=== PATIENT | male | born 1975 | race African-American/Black ===

== ENCOUNTER → 2020-06-11 12:59 | Outpatient (BNVA) | payer MEDICAID, SELFPAY | PROVIDERS: PCP Internal Medicine; Referring Provider Internal Medicine; Visit Provider Orthopaedic Surgery | DX: S97.02XD Crushing injury of left ankle, subsequent encounter (principal) | CPT/HCPCS: 99213 ==

== ENCOUNTER 2020-06-29 13:43 | Outpatient (REF) | payer MEDICAID, SELFPAY ==
--- NOTE | 2020-06-29 13:53 | CT_ITS ---
EXAMINATION: CT LEFT ANKLE WITHOUT CONTRAST CLINICAL INFORMATION: Crush injury of left ankle. COMPARISON: Left ankle 06/04/2020 TECHNIQUE: 2 mm thin axial and reformatted 1 mm thin sagittal and coronal images of left ankle were obtained. DLP: 168 mGy-cm. FINDINGS: There is diffuse qtzentwj-ft-duxviu osteopenia. No visible fracture or dislocation or subluxation seen. The ankle mortise and the subtalar joints are maintained normal. There is mild spurring along the dorsal-medial cuneiform and navicular bone. The intertarsal, tarsometatarsal joint alignment is normal. No abnormal joint effusion seen. Visualized medial and lateral ankle ligaments on this nonenhanced CT appear intact. There is small ossicular bone is seen medial and inferior to the navicular bone likely os naviculare. IMPRESSION: Diffuse cdrmgyal-jh-psmcgb osteopenia. No visible fracture, dislocation or loose body seen. The joint alignment is maintained. No abnormal soft tissue swelling seen. Minimal dorsal-medial cuneiform and navicular bone spurring.
== END 2020-06-29 13:44 | disposition home or self-care (01) ==
LOC: HO.CT 13:43
PROVIDERS: Visit Provider Orthopaedic Surgery
DX: S97.0 Crushing injury of ankle (principal)
CPT/HCPCS: 73700

== ENCOUNTER → 2020-07-09 09:02 | Outpatient (BNVA) | payer OTHER, MEDICAID, SELFPAY | PROVIDERS: PCP Internal Medicine; Referring Provider Internal Medicine; Visit Provider Orthopaedic Surgery | DX: S97.82XD Crushing injury of left foot, subsequent encounter (principal); S97.02XD Crushing injury of left ankle, subsequent encounter | CPT/HCPCS: 99212 ==

== ENCOUNTER → 2020-08-10 10:51 | Outpatient (BNVA) | payer OTHER, MEDICAID, SELFPAY | PROVIDERS: Visit Provider Orthopaedic Surgery | DX: S97.81XD Crushing injury of right foot, subsequent encounter (principal); S97.01XD Crushing injury of right ankle, subsequent encounter | CPT/HCPCS: 99212 ==

== ENCOUNTER 2020-08-21 10:00 | Outpatient (RCR) | payer OTHER, MEDICAID, SELFPAY ==
--- NOTE | 2020-07-17 15:11 | MHC.PT.EP ---
[facility] [place] Office [place] Office [place] Office [address] Ema Doyle 140 [facility] [phone] F: [phone] F: [phone] F: [phone] F: [phone] Physical Therapy Plan of Care Date of Evaluation: 07/17/20 Date of Surgery: no surgery Diagnosis: left foot work injury Assessment: Pt has left ankle pain after a work related injury. He has decreased ROM, strength in the left ankle. The patient has an altered gait pattern, and decrreased functional movement. He has poor balance, and is not putting equal weight in the left ankle. He is a good candidate to work on current impairments. Frequency and Duration: The patient will be seen 2x/week x 4 weeks. Short Term Goals: 1. Pt to be able to walk with a heel to toe gait pattern without pain. [facility]ci Goals: 1. Pt to be able to walk with a heel to toe gait pattern without pain. 2. The patient to be able to negotiate all community obstacles without trouble. Treatment Plan: Modalities to reduce pain, spasms and effusion. Manual therapy to restore motion and function. Therapeutic exercise to improve strength and flexibility. Neuromuscular re-education for posture and balance. Therapeutic activities to return to functional activities of daily living. Please sign and return to therapist. Thank you for your referral.
--- NOTE | 2020-09-22 10:54 | MHC.PT.DC ---
[facility] [place] Office [place] Office [place] Office [address] Ema Doyle [address] [phone] F: [phone] F: [phone] F: [phone] F: [phone] Physical Therapy Discharge Report Diagnosis: left foot work injury Date of Surgery: no surgery Date of Evaluation: 07/17/20 Date of Discharge: 09/22/20 Treatments to Date: 10 Cancellations to Date: 0 No Shows to Date: 0 Discharge Status: Recommend MD Follow-up Discharge Summary: The patient was making slow progress with activity tolerance. He still had considerable pain following an injury in May. Since PT was not helping we discussed f/u with his MD for further diagnostic imaging to rule out ligament pathology. Electronically signed by: Nedra Rizo PT DPT Please sign and return to therapist. Thank you for your referral.
== END 2020-09-22 10:56 | disposition other institution (70) ==
LOC: HO.PT 10:00
PROVIDERS: PCP Internal Medicine; Visit Provider Orthopaedic Surgery
DX: S97.02XD Crushing injury of left ankle, subsequent encounter (principal)
CPT/HCPCS: 97110; 97112; 97116; 97140; 97162; 97530

== ENCOUNTER 2020-09-15 18:47 | Outpatient (REF) | payer OTHER, MEDICAID, SELFPAY ==
--- NOTE | 2020-09-15 18:49 | MR_ITS ---
EXAMINATION: MRI ANKLE WITHOUT CONTRAST, LEFT CLINICAL INFORMATION: Left ankle pain and swelling. Crush injury. COMPARISON: Left ankle radiographs dated 06/04/[address] dated 06/29/2020. TECHNIQUE: Multisequence MR images of the left ankle were obtained without contrast on a high-field strength scanner. FINDINGS: BONE AND ARTICULAR CARTILAGE: Marrow edema within the medial talus as well as the medial malleolus adjacent to the deltoid ligament attachments. Findings are likely reactive to the associated deltoid ligament pathology. Minimal marrow edema within the lateral aspect of the anterior calcaneus, which could represent an osseous contusion. Intact articular cartilage. No talar osteochondral lesion. ACHILLES TENDON: Mild thickening of the distal Achilles tendon, which could represent minimal chronic tendinosis. No measurable tendon defect. OTHER TENDONS: Intact. LIGAMENTS: Thickening of the anterior and posterior talofibular ligaments as well as the calcaneofibular ligament, consistent with remote sprain/partial tears. Thickening and edema throughout the deltoid ligament, consistent with an acute sprain/partial tear. Adjacent reactive marrow edema within the medial malleolus and talus. JOINT FLUID AND SOFT TISSUES: Small tibiotalar joint effusion. PLANTAR FASCIA: Normal. SINUS TARSI AND TARSAL TUNNEL: Normal. MR/MR ankle LT wo con IMPRESSION: 1. Moderate sprain/partial tear of the deltoid ligament with reactive marrow edema in the medial malleolus and medial talus. 2. Mild marrow edema within the anterolateral aspect of the calcaneus, which could represent an osseous contusion. 3. Mild chronic Achilles tendinosis without a measurable tendon defect. 4. Remote sprain/partial tears of the anterior posterior talofibular ligaments as well as the calcaneofibular ligament. 5. Small tibiotalar joint effusion.
== END 2020-09-15 18:48 | disposition home or self-care (01) ==
LOC: HO.MRI 18:47
PROVIDERS: Visit Provider Orthopaedic Surgery
DX: S97.02XA Crushing injury of left ankle, initial encounter (principal); X58.XXXA Exposure to other specified factors, initial encounter; Y93.9 Activity, unspecified; Y92.9 Unspecified place or not applicable; Y99.0 Civilian activity done for income or pay
CPT/HCPCS: 73721

== ENCOUNTER → 2020-09-24 11:15 | Outpatient (BNVA) | payer OTHER, MEDICAID, SELFPAY | PROVIDERS: Visit Provider Orthopaedic Surgery | DX: S97.0 Crushing injury of ankle (principal); S97.80XA Crushing injury of unspecified foot, initial encounter | CPT/HCPCS: 99212 ==

== ENCOUNTER 2020-11-20 11:00 | Outpatient (RCR) | payer OTHER, MEDICAID, SELFPAY ==
[2020-10-06 15:07] VITALS: BP 143/90; PULSE 72
--- NOTE | 2020-10-06 16:19 | MHC.PT.EP ---
[facility] [place] Office [place] Office [place] Office [address] Haanne Doyle [address] [phone] F: [phone] F: [phone] F: [phone] F: [phone] Physical Therapy Plan of Care Date of Evaluation: 10/06/20 Date of Surgery: Diagnosis: crushing injury of R foot and ankle Assessment: Pt is a 45 y.o.m. with chief complaint of (L) ankle pain and swelling following workplace crush injury on 05/18/2020 in which he had a pallet noelle roll over foot. Recent MRI 08/15/21 shows moderate deltoid ligamentous tear, mild tears of PTFL and CFL with achilles tendinopathy. Pt presents today to PT with reduced (L) ankle/foot ROM, reduced strength, pain, lateral ligamentous laxity, and swelling. Pt additionally has visible atrophy of ankle musculature that likely contributes to (L) ankle weakness. Pt sxs are consistent with chronic ligamentous injury and resultant weakness and hypomobility. Pt will benefit from skilled PT 2x/week for 6 weeks to improve ROM, strength, and functional mobility to assist in return to work, ambulation, and ADLs. Frequency and Duration: The patient will be seen 2x/week for 6 weeks Short Term Goals: 3 Weeks: 1)Pt will be independent in HEP to maintain gains between sessions. 2)Pt DF will be neutral to aid in ambulation. [employer] Goals: 6 Weeks: 1) Pt LEFS will be >60/80 to represent significant improvement in function. 2) Pt will tolerate >45 minutes of standing activity to aid in return to work. 3) Pt will be able to ambulate >30 minutes to aid in return to work. Treatment Plan: Modalities to reduce pain, spasms and effusion. Manual therapy to restore motion and function. Therapeutic exercise to improve strength and flexibility. Neuromuscular re-education for posture and balance. Therapeutic activities to return to functional activities of daily living. Electronically signed by: Cailin Hagen PT Please sign and return to therapist. Thank you for your referral.
--- NOTE | 2020-11-11 12:12 | MHC.PT.PR ---
[facility] [place] Office [place] Office [place] Office [address] Ema Doyle [address] [phone] F: [phone] F: [phone] F: [phone] F: [phone] Physical Therapy Progress Note Diagnosis: crushing injury of L foot and ankle Date of Surgery: NA Date of Evaluation: 10/06/20 Treatments to Date: 10 Cancellations to Date: 0 No Shows to Date: 0 Subjective: Increased L ankle pain today and he is unsure why. It started yesterday and hurts anterior and medial L ankle. Pain Score and Location: 7 L ankle Objective Measures: L ankle PROM: df 8, pf 55, inv 24, eversion 6 L LE strength: 5/5 hip flexor/IR/HS, 4+/5 ER/quads/pf, 4/5 ankle df, 4-/5 ankle inv/eversion with pain. Still lacks significant toe mobility Assessment: Pt regressed today in terms of gait pattern, pain, and exercise tolerance. He is unsure what happened, but he had increased pain starting yesterday along medial arch and medial ankle. Overall he feels that PT has been helping and feels 60-70% better since starting other than todays regression. He is compliant with HEP and added self stretching to toes as he still has minimal toe activation. He demonstrates improved hip/knee strength and his ankle strength is the same with pain during inversion and eversion. His L ankle ROM has improved significantly (see above for measurements). He is now able to stand for 35 minutes and walk for 40 minutes before needing to sit down. His single limb balance is 14 seconds on L with pain and instability noted. He may benefit from continued PT 2x/week for an additional 3 weeks to progress balance and functional mobility such as step-downs as he still has significant compensatory movement with forward and lateral step downs. He has a f/u with Ortho 11/17 and another appointment 11/23 to decide whether he will have ankle surgery. PT Plan: Continue with PT Frequency and Duration: The patient will be seen 2x/week for an additional 3 weeks Treatment Plan: Therapeutic Exercise Dynamic Therapeutic Activities Neuromuscular Re-ed Manual Therapies Gait Home Exercise Program Patient Education Hot or Cold Pack Reviewed/ Agreed with Student Documentation: N/A Therapist: Melissa Freeman, PT, DPT Thank you once again for your referral.
--- NOTE | 2020-12-17 15:57 | MHC.PT.DC ---
[facility] [place] Office [place] Office [place] Office [address] Ema Doyle [address] [phone] F: [phone] F: [phone] F: [phone] F: [phone] Physical Therapy Discharge Report Diagnosis: crushing injury of L foot and ankle Date of Surgery: NA Date of Evaluation: 10/06/20 Date of Discharge: 12/17/20 Treatments to Date: 13 Cancellations to Date: 0 No Shows to Date: 0 Discharge Status: Independent with HEP Recommend MD Follow-up Discharge Summary: Pt did not f/u with final visit however at time of last attended visit 11/20/20 Pt arrived stating he is feeling better but still has pain. His pain is localized to joint line and dorsal aspect of toes. Pt was continued with balance and strengthening exercises. He was challenged with 8 inch step for forward step downs and lateral step down. Pt had joint line discomfort but was able to complete the exercises. Continue challenging balance and LE strength. No adverse response noted to any exercise. Electronically signed by: Cailin Hagen PT Please sign and return to therapist. Thank you for your referral.
== END 2020-12-17 15:58 | disposition home or self-care (01) ==
LOC: HO.PT 11:00
PROVIDERS: PCP Internal Medicine; Visit Provider Orthopaedic Surgery
DX: S97.0 Crushing injury of ankle (principal); S00-T88 Injury, poisoning and certain other consequences of external causes
CPT/HCPCS: 97110; 97112; 97162; 97530

== ENCOUNTER → 2020-11-30 10:49 | Outpatient (BNVA) | payer OTHER, MEDICAID, SELFPAY | PROVIDERS: Visit Provider Orthopaedic Surgery | DX: S97.82XA Crushing injury of left foot, initial encounter (principal); S97.02XA Crushing injury of left ankle, initial encounter | CPT/HCPCS: 99212 ==

== ENCOUNTER → 2021-02-22 13:15 | Outpatient (BNVA) | payer OTHER, MEDICAID, SELFPAY | PROVIDERS: PCP Internal Medicine Geriatric Medicine; Visit Provider Orthopaedic Surgery | DX: S97.0 Crushing injury of ankle (principal); S00-T88 Injury, poisoning and certain other consequences of external causes | CPT/HCPCS: 99212 ==

== ENCOUNTER → 2021-03-03 09:09 | Outpatient (REF) | payer MEDICAID, SELFPAY ==
--- NOTE | ~2021-03-03 | NM_ITS ---
Myocardial perfusion study Indication: Chest pain to evaluate for myocardial ischemia Technique: The patient was brought in for a Lexiscan perfusion study on 03/03/2021. Patient performed low-level exercise and was injected 0.4 mg of Lexiscan intravenously. Within a minute of injection, 25 mCi of sestamibi was given intravenously. Images were obtained using the SPECT gamma camera interlaced with the gating device. Images were obtained in supine position. Resting perfusion study was performed on 03/04/2021. Patient was administered 25 mCi of sestamibi intravenously at rest. Images were then obtained in supine position. Images obtained with and without CT attenuation. Total DLP 83 mGy-cm. Images were processed with the software and compared side to side in short axis, horizontal long axis and vertical long axis views. Findings: The stress perfusion study showed nonattenuated images show mildly reduced uptake in the basal septum of the LV myocardium. Remainder of the LV myocardium is normally perfused. Attenuation corrected images show mildly reduced uptake in the apex of the LV myocardium.. The gated study shows normal LV systolic function with visually estimated LVEF of greater than 55%. LV cavity is normal in size. The gated study shows normal systolic wall thickening and contraction of segments. Resting study shows nonattenuated images show mildly reduced uptake in the basal septum of the LV myocardium. Attenuation corrected images show moderately reduced uptake in the apex of the LV myocardium.. Gating at rest reveals normal systolic wall motion with visually estimated ejection fraction at greater than 55%. The findings are consistent with normal myocardial perfusion. NM/NM tresa perf SPECT rest & str Impression: 1. Myocardial perfusion imaging study shows normal myocardial perfusion 2. Gated LVEF is greater than 55% 3. Transient ischemic dilatation not present EKG is nondiagnostic for ischemia
--- NOTE | 2021-03-03 09:12 | CA_ITS ---
Acquisition Time: 2021-03-03 09:25:53 Total Exercise Time: 00:02:00 Test Indications: CP, SOB Medications: SEE CHART Protocol: LEXISCAN Max HR: 107 BPM 61% of Pred: 173 BPM Max BP: 120/080 mmHG Max Work Load: 1.6 METS Pharmacological stress test with Lexiscan injection, while walking on treadmill, without anginal symptoms, without arrythmia, with normotensive response to injection, with nondiagnostic EKG for ischemia. Nuclear images pending. Test reviewed with Dr Mendoza. Referred By: Drake Cohen Overread By: RASTA NUNEZ
== END ==
LOC: HO.CARD 09:09
PROVIDERS: PCP Internal Medicine; Visit Provider Internal Medicine Cardiovascular Disease
DX: R07.9 Chest pain, unspecified (principal)
CPT/HCPCS: 78452; 93017; A9500; J0280; J2785

== ENCOUNTER → 2021-03-24 14:58 | Outpatient (BNVA) | payer MEDICAID, SELFPAY | PROVIDERS: PCP Internal Medicine; Visit Provider Nurse Practitioner Family | DX: G90.50 Complex regional pain syndrome I, unspecified (principal); Z79.899 Other long term (current) drug therapy | CPT/HCPCS: 99202 ==

== ENCOUNTER → 2021-04-21 14:18 | Outpatient (BNVA) | payer MEDICAID, SELFPAY | PROVIDERS: PCP Internal Medicine; Visit Provider Nurse Practitioner Family ==

== ENCOUNTER → 2021-04-26 08:47 | Outpatient (BNVA) | payer MEDICAID, SELFPAY | PROVIDERS: PCP Internal Medicine Geriatric Medicine; Visit Provider Orthopaedic Surgery | DX: G90.50 Complex regional pain syndrome I, unspecified (principal); S97.02XA Crushing injury of left ankle, initial encounter; S97.82XA Crushing injury of left foot, initial encounter | CPT/HCPCS: 99212 ==

== ENCOUNTER → 2021-06-07 09:42 | Outpatient (BNVA) | payer MEDICAID, SELFPAY | PROVIDERS: PCP Internal Medicine Geriatric Medicine; Visit Provider Orthopaedic Surgery | DX: S97.02XD Crushing injury of left ankle, subsequent encounter (principal); S97.82XD Crushing injury of left foot, subsequent encounter; G90.50 Complex regional pain syndrome I, unspecified | CPT/HCPCS: 99212 ==

== ENCOUNTER → 2021-06-18 08:27 | Outpatient (BNVA) | payer MEDICAID, SELFPAY | PROVIDERS: PCP Internal Medicine Geriatric Medicine; Visit Provider Nurse Practitioner Family | DX: G90.50 Complex regional pain syndrome I, unspecified (principal) | CPT/HCPCS: 99212 ==

== ENCOUNTER → 2021-07-06 15:23 | Outpatient (BNVA) | payer MEDICAID, SELFPAY | PROVIDERS: Visit Provider Nurse Practitioner Family | DX: G90.50 Complex regional pain syndrome I, unspecified (principal) | CPT/HCPCS: 99212 ==

== ENCOUNTER → 2021-07-21 08:24 | Outpatient (BNVA) | payer MEDICAID, SELFPAY | PROVIDERS: Visit Provider Nurse Practitioner Family | DX: G90.50 Complex regional pain syndrome I, unspecified (principal) | CPT/HCPCS: 99212 ==

== ENCOUNTER → 2021-11-11 13:03 | Outpatient (BNVA) | payer OTHER, MEDICAID, SELFPAY | PROVIDERS: Visit Provider Orthopaedic Surgery | DX: S97.0 Crushing injury of ankle (principal); S00-T88 Injury, poisoning and certain other consequences of external causes | CPT/HCPCS: 99212 ==

== ENCOUNTER 2022-03-29 17:50 | Outpatient (REF) | payer OTHER, SELFPAY ==
--- NOTE | ~2022-03-29 | MR_ITS ---
EXAMINATION: MRI ANKLE WITHOUT CONTRAST, LEFT CLINICAL INFORMATION: Crush injury. COMPARISON: MRI ankle 09/15/2020 TECHNIQUE: MRI of the ankle without contrast is performed in a 1.5 Tammi high-field scanner. FINDINGS: There is a significant motion artifact degrading the images. This markedly limits evaluation. Technologist notes indicate patient kept falling asleep. Repeat MRI is recommended. BONE/JOINTS: Previous MRI demonstrated marrow edema within the medial talus and the medial malleolus. This area is obscured by artifact in the current study, not well evaluated. Limited evaluation of the calcaneus in the provided study. Question edema in the lateral/posterior aspect of the calcaneus, as seen on the sagittal sequences, suboptimally evaluated. There appears be cyst/edema in the first metatarsal head, which may be degenerative, incompletely evaluated. MUSCLES/TENDONS: Limited incomplete evaluation. LIGAMENTS: Limited incomplete evaluation ACHILLES TENDON: Limited evaluation. Grossly intact.. PLANTAR FASCIA: Limited incomplete evaluation.. SINUS TARSI: Normal signal. MR/MR foot LT wo con IMPRESSION: 1. There is marked motion artifact degrading the images. Evaluation is incomplete. Repeat MRI is recommended. 2. Limited incomplete evaluation of the osseous structures, tendons, ligaments.
== END 2022-03-29 17:51 | disposition home or self-care (01) ==
LOC: HO.MRI 17:50
PROVIDERS: Visit Provider Orthopaedic Surgery
DX: S97.02XD Crushing injury of left ankle, subsequent encounter (principal); S97.82XD Crushing injury of left foot, subsequent encounter
CPT/HCPCS: 73718

== ENCOUNTER → 2022-05-06 11:28 | Outpatient (BNVA) | payer OTHER, MEDICAID, SELFPAY | PROVIDERS: PCP Internal Medicine; Visit Provider Orthopaedic Surgery | DX: S97.02XA Crushing injury of left ankle, initial encounter (principal); S97.82XA Crushing injury of left foot, initial encounter; G90.50 Complex regional pain syndrome I, unspecified | CPT/HCPCS: 99212 ==

== ENCOUNTER 2022-05-12 10:11 | Outpatient (REF) | payer MEDICAID, SELFPAY ==
--- NOTE | ~2022-05-12 | XR_ITS ---
EXAMINATION: XR KNEE, RIGHT CLINICAL INFORMATION: Pain in right knee COMPARISON: None TECHNIQUE: Three views of the right knee. FINDINGS: Large suprapatellar joint effusion is present. Nor fracture or dislocation. Joint spaces are maintained. XR/XR knee RT 3V IMPRESSION: Large suprapatellar joint effusion is present.
--- NOTE | ~2022-05-12 | US_ITS ---
EXAMINATION: US VENOUS ULTRASOUND WITH DOPPLER LOWER EXTREMITY, RIGHT CLINICAL INFORMATION: Right leg pain and swelling COMPARISON: None TECHNIQUE: Ultrasound of the deep veins is performed from the hip to the calf with compression sonography and color and pulse Doppler assessment. Spectral analysis with color-flow imaging is performed. FINDINGS: There is normal venous compression and respiratory variation and augmented flow. The visualized common femoral vein, superficial femoral vein, profunda femoral vein, popliteal vein, and the trifurcation region shows no evidence of deep venous thrombosis. There is no significant popliteal fossa cyst. There is a complex fluid collection seen related to the anterior right knee and distal thigh. US/US venous duplex LE RT IMPRESSION: No DVT demonstrated in the right lower extremity. Complex fluid collection associated with the anterior right knee and distal thigh. If there is further clinical concern, MR examination may be helpful toward further clarification.
== END 2022-05-12 10:12 | disposition home or self-care (01) ==
LOC: HO.US 10:11
PROVIDERS: PCP Internal Medicine; Visit Provider Family Medicine
DX: M25.561 Pain in right knee (principal); M25.461 Effusion, right knee
CPT/HCPCS: 73562; 93971

== ENCOUNTER → 2022-05-19 15:55 | Outpatient (BNVA) | payer MEDICAID, SELFPAY | PROVIDERS: PCP Internal Medicine; Visit Provider Nurse Practitioner Family | DX: G90.50 Complex regional pain syndrome I, unspecified (principal); G43.009 Migraine without aura, not intractable, without status migrainosus; M47.816 Spondylosis without myelopathy or radiculopathy, lumbar region; M54.16 Radiculopathy, lumbar region; M25.561 Pain in right knee; S97.82XD Crushing injury of left foot, subsequent encounter; S97.02XD Crushing injury of left ankle, subsequent encounter | CPT/HCPCS: 99212 ==

== ENCOUNTER 2022-06-07 15:53 | Outpatient (REF) | payer OTHER, MEDICAID, SELFPAY ==
--- NOTE | ~2022-06-07 | MR_ITS ---
EXAMINATION: MR LUMBAR SPINE WITHOUT CONTRAST CLINICAL INFORMATION: Low back pain and lower extremity pain. COMPARISON: None. TECHNIQUE: Multiplanar, multisequence imaging was obtained. FINDINGS: VERTEBRAL BODIES AND PARASPINAL STRUCTURES: Mild anterosuperior endplate edema noted at the L2 and L3 levels. The remainder of the marrow signal is fairly homogeneous. There is mildly reduced intradiscal signal without a loss of disc height at the L4-L5 level. The paraspinal soft tissues are unremarkable. The imaged bony pelvis appears normal. CONUS MEDULLARIS AND CAUDA EQUINE: The distal cord, conus tip, and cauda equina nerve roots are normal. SPINAL LEVELS: L1-L2 and L2-L3: Well-hydrated normal appearance of the discs without central canal stenosis or foraminal narrowing. L3-L4: Very mild right posterolateral disc bulge with mild right foraminal encroachment abutting the exiting right L3 nerve root with mild facet arthropathy. No central canal stenosis. L4-L5: Mild disc degeneration and disc bulge with xein-ey-zlqsunva facet arthropathy. No central canal stenosis. Right foraminal disc protrusion with an underlying annular tear resulting in jyitmoss-ce-lclako foraminal encroachment and mass effect upon the exiting right L4 nerve root. Moderate left foraminal narrowing. L5-S1: No disc pathology. No central canal stenosis or foraminal narrowing. MR/MR lumbar spine wo con IMPRESSION: Mild right posterolateral disc bulge at the L3-L4 level contacting the exiting right L3 nerve root with mild right foraminal encroachment. Mild disc degeneration at the L4-L5 level with a right foraminal disc protrusion and underlying annular tear resulting in significant foraminal encroachment and mass effect upon the right L4 nerve root. Additional moderate left foraminal narrowing.
== END 2022-06-07 15:54 | disposition home or self-care (01) ==
LOC: HO.MRI 15:53
PROVIDERS: Visit Provider Nurse Practitioner Family
DX: M47.816 Spondylosis without myelopathy or radiculopathy, lumbar region (principal); G90.50 Complex regional pain syndrome I, unspecified; M54.16 Radiculopathy, lumbar region
CPT/HCPCS: 72148

== ENCOUNTER 2022-06-08 12:30 | Outpatient (REF) | payer MEDICAID, SELFPAY ==
--- NOTE | ~2022-06-08 | XR_ITS ---
EXAMINATION: XR BOTH KNEES AP STANDING XR RIGHT KNEE, 2 VIEWS CLINICAL INFORMATION: Right knee pain. COMPARISON: Right knee radiographs dated 05/12/2022. TECHNIQUE: Standing AP view of both knees and lateral and sunrise views of the right knee. FINDINGS: RIGHT KNEE: No acute fracture or dislocation. No significant joint space narrowing or marginal osteophytes. No osseous erosion. Utibv-he-oxvjxuhl joint effusion, decreased when compared to the prior examination. No abnormal soft tissue calcification. LEFT KNEE: No acute fracture or dislocation. No joint space narrowing or marginal osteophytes. No osseous erosion. No abnormal soft tissue calcification. XR/XR knee RT 2V IMPRESSION: Swufi-dy-fjjoajkm right knee joint effusion, decreased when compared to the prior examination. No acute osseous abnormality.
--- NOTE | ~2022-06-08 | XR_ITS ---
EXAMINATION: XR BOTH KNEES AP STANDING XR RIGHT KNEE, 2 VIEWS CLINICAL INFORMATION: Right knee pain. COMPARISON: Right knee radiographs dated 05/12/2022. TECHNIQUE: Standing AP view of both knees and lateral and sunrise views of the right knee. FINDINGS: RIGHT KNEE: No acute fracture or dislocation. No significant joint space narrowing or marginal osteophytes. No osseous erosion. Vayln-yo-norevkea joint effusion, decreased when compared to the prior examination. No abnormal soft tissue calcification. LEFT KNEE: No acute fracture or dislocation. No joint space narrowing or marginal osteophytes. No osseous erosion. No abnormal soft tissue calcification. XR/XR knee standing BI IMPRESSION: Mocps-qt-ctorsusf right knee joint effusion, decreased when compared to the prior examination. No acute osseous abnormality.
== END 2022-06-08 12:31 | disposition home or self-care (01) ==
LOC: HO.HOSX 12:30
PROVIDERS: Visit Provider Physician Assistant
DX: M25.561 Pain in right knee (principal); M25.562 Pain in left knee; S86.111D Strain of other muscle(s) and tendon(s) of posterior muscle group at lower leg level, right leg, subsequent encounter
CPT/HCPCS: 73560; 73565; 99212

== ENCOUNTER → 2022-06-16 11:40 | Day surgery (SDC) | payer OTHER, MEDICAID, SELFPAY ==
[2022-06-13 12:29] VITALS: BMI 26.3
--- NOTE | 2022-06-14 10:49 | P.CONAN_ITS ---
Documented by User: Maria T Camacho NP 06/14/22 10:51 HPI - Anesthesia Eval Consult details Narrative: 46yo M for Lumbar Spinal Cord Stimulation Trial 05/12/22 seen by PCP for calf pain. Ultrasound same day negative for DVT per orthopedic note. Follows cardiology for htn. Had chest pain 2020, but noncardiac, likely musculoskeletal per 12/2021 office visit and negative nuc stress PMFSH Active Problems Active Problems: All Active Problems (Updated 06/08/22 @ 13:32 by Ryan Lanza) Strain of right gastrocnemius muscle (Acute) Edema (Acute) Right calf pain (Acute) Right knee pain (Acute) Migraine without aura, not intractable (Acute) Lumbar radiculitis (Acute) Lumbar spondylosis (Acute) CRPS (complex regional pain syndrome type I) (Acute) Crushing injury of ankle and foot (Acute) Past Medical History Medical History (Updated 06/08/22 @ 13:32 by Ryan Lanza) High blood pressure Migraines Family History Family History Father No problems noted. Mother No problems noted. Social History Social History Household Members: Spouse Alcohol intake: never Patient Tobacco Use Status: Current everyday Tobacco user Tobacco use type: Cigarette Cigarettes Per Day: 4 Use of substances other than those prescribed or required for medical reasons: No Are you DNR?: No Advance Directives: No Advance Directives Information Provided: Yes Current occupational status: unemployed Current occupation: right handed Meds Allergies Allergy/AdvReac Type Severity Reaction Status Date / Time No Known Allergies Allergy Verified 05/19/22 16:06 Home Medications Medication Instructions Recorded Confirmed Last Taken Type blood pressure test kit-large #1 ea 02/22/21 06/08/22 Unknown History methocarbamol 750 mg tablet 750 mg PO QID PRN muscle spasm 02/22/21 06/08/22 Unknown History amlodipine 5 mg tablet 5 mg PO DAILY 06/18/21 06/08/22 Unknown History ergocalciferol (vitamin D2) 50 mcg 50 mcg PO DAILY 06/18/21 06/08/22 Unknown History (2,000 unit) capsule losartan 50 mg-hydrochlorothiazide 1 tab PO DAILY 06/18/21 06/08/22 Unknown History 12.5 mg tablet amitriptyline 25 mg tablet 25 mg PO BEDTIME 06/08/22 06/08/22 Unknown History bupropion HCl 150 mg 24 hr tablet, 150 mg PO DAILY 06/08/22 06/08/22 Unknown History extended release hydroxyzine pamoate 25 mg capsule 25 mg PO TID PRN panic attack 06/08/22 06/08/22 06/16/22 History naproxen 500 mg tablet 500 mg PO BID 06/08/22 06/08/22 Unknown History Exam Exam Date and Time: June 14, 2022 104 Height,Weight and Vital Signs: Height 5 ft 8 in Weight 78.471 kg Narrative Narrative: NM tresa perf SPECT rest & str 02/2021 Impression: ? 1.? Myocardial perfusion imaging study shows normal myocardial perfusion 2.? Gated LVEF is greater than 55% 3. Transient ischemic dilatation not present ? EKG is nondiagnostic for ischemia Assessment and Plan Assessment Anesthesia Assessment: Chart Reviewed Documented by User: Xavi Esposito MD 06/16/22 16:32 HPI - Anesthesia Eval Consult details Narrative: 46yo M for Lumbar Spinal Cord Stimulation Trial Smoker 05/12/22 seen by PCP for calf pain. Ultrasound same day negative for DVT per or thopedic note. Follows cardiology for htn. Had chest pain 2020, but noncardiac, likely musculoskeletal per 12/2021 office visit and negative nuc stress PMFSH Past Medical History Medical History (Updated 06/08/22 @ 13:32 by Ryan Lanza) High blood pressure Migraines Family History Family History Father No problems noted. Mother No problems noted. Family history of problems with anesthesia: No Surgical History History of Problems with Anesthesia: No Social History Social History Household Members: Spouse Alcohol intake: never Patient Tobacco Use Status: Current everyday Tobacco user Tobacco use type: Cigarette Cigarettes Per Day: 4 Use of substances other than those prescribed or required for medical reasons: No Are you DNR?: No Advance Directives: No Advance Directives Information Provided: Yes Current occupational status: unemployed Current occupation: right handed Meds Allergies Allergy/AdvReac Type Severity Reaction Status Date / Time No Known Allergies Allergy Verified 05/19/22 16:06 Home Medications Medication Instructions Recorded Confirmed Last Taken Type blood pressure test kit-large #1 ea 02/22/21 06/08/22 Unknown History methocarbamol 750 mg tablet 750 mg PO QID PRN muscle spasm 02/22/21 06/08/22 Unknown History amlodipine 5 mg tablet 5 mg PO DAILY 06/18/21 06/08/22 Unknown History ergocalciferol (vitamin D2) 50 mcg 50 mcg PO DAILY 06/18/21 06/08/22 Unknown History (2,000 unit) capsule losartan 50 mg-hydrochlorothiazide 1 tab PO DAILY 06/18/21 06/08/22 Unknown History 12.5 mg tablet amitriptyline 25 mg tablet 25 mg PO BEDTIME 06/08/22 06/08/22 Unknown History bupropion HCl 150 mg 24 hr tablet, 150 mg PO DAILY 06/08/22 06/08/22 Unknown History extended release hydroxyzine pamoate 25 mg capsule 25 mg PO TID PRN panic attack 06/08/22 06/08/22 06/16/22 History naproxen 500 mg tablet 500 mg PO BID 06/08/22 06/08/22 Unknown History Exam Airway Mallampati Class: III TM Dist: >3cm Neck ROM: Full Denture: Upper Loose/Missing/Broken Teeth: Yes Heart: S1,S2 Lungs: b/l breath sounds Assessment and Plan Assessment Anesthesia Assessment: Anesthesia Plan Discussed Final Anesthetic Review Family History of Problems with Anesthesia: No History of Problems with Anesthesia: No NPO: Yes ASA Class: III Final Preanesthetic Review: Meds/Allgs Chart Reviewed, Consent Obtained/Reviewed and Anes Risks/Benef Reviewed Patient Risk: Intermediate Procedure Risk: Intermediate Anesthetic Plan Anesthetic Plan: MAC: Disposition: Standard PACU
--- NOTE | 2022-06-16 11:47 | P.HPSUR_ITS ---
Pre-Procedural Eval Section A Date of Service: 06/16/22 The patient is an INPATIENT: No Changes since office visit: Yes Patient answered all questions The History & Physical has been completed within 30 days and I have reviewed it.: No Section B Chief Complaint: Complex regional pain syndrome I, unspecified Details of Present Illness: as above Relevant Family History (Specify if Yes): No Relevant Social History: None Present Medications: None Medical History: No relevant PMH History of Previous Operations: No relevant previous surgery Allergies: Allergies Allergy/AdvReac Type Severity Reaction Status Date / Time No Known Allergies Allergy Verified 05/19/22 16:06 Review of Systems Sugical H&P ROS: Negative: Constitution, Cardiovascular, Respiratory, Neur ological, Psychiatric, Hem-Onc, Allergic/Immunologic, Gastrointestinal, Genitourinary, Musculoskeletal, Integumentary, Endocrine and Eyes/Ears/Nose/Throat Exam Surgical H&P Exam: Normal: HEENT, Normal: Heart, Normal: Lungs, Normal: Extremities, Normal: Abdomen, Normal: Skin and Normal: Neurological Plan Diagnosis/Plan: Unchanged I have reviewed the history and physical and performed a pertinent physical examination on my patient. No changes have occurred unless specified.
[2022-06-16 11:57] VITALS: BMI 22.0
[2022-06-16 12:18] VITALS: BP 124/76; PULSE 74; RESP 16; TEMP 36.6; O2SAT 97
[2022-06-16] MEDS: Lactated Ringers 1,000 ML 100 ML IVCONT (12:33)
--- NOTE | 2022-06-16 13:36 | W.PM.OPN ---
Operative Note Operative Note Date of Service: 06/16/22 Narrative: Sincere is very pleasant [place] speaking 46 y.o gentleman who came today into the operating room for trial of spinal cord stimulator [employer] for the treatment of CRPS of the ... lower extremity, S/p crushing injury of his ... foot as well as lower back pain secondary to lumbar spondylosis and disc degeneration. ?Preoperatively patient received ? cefazolin 2 g approximately 10 minutes before the procedure. After obtaining informed consent the patient was brought to the operating room, HE was positioned prone on operating table, [employer] monitors were applied and the patient was moderately sedated.? ?Time-out was performed delineating correct site, side, the nature of the procedure, patient's allergy, preoperative antibiotic if needed.? All operating room staff was participating in OR time-out procedure. Patient's entire back was prepped with Chloraprep twice and draped with full body fenestrated laparoscopy drape.? Sterilely draped C-arm was brought over operating field and square picture of the ? T12-L1 L2 and L3 vertebrae? were demonstrated on the screen.? ?Attention FIRST? was concentrated on the L1-L2 epidural interspace.? The location of the projection of the right pedicle center of the L3 vertebra was found on the skin using C-arm.? This location was injected with mixture of lidocaine 2% and Marcaine 0.5% - 5 cc.? After that 11 blade was used to make a maldonado on the skin.? 10 cm 14 gauge? introducer epidural needle was inserted through the maldonado and advanced to? L1-L2 epidural interspace.? The advancement of the needle was performed on anterior posterior and lateral views.?Loss of resistance to air? technique were used to locate epidural space., epidural lead was inserted through the needle and it was advanced to?? top of T8 vertebra projection slightly right to the midline.? ? .? After that? the location of the projection of the LEFT pedicle center of the? L3 vertebra was found on the skin using C-arm.? This location was injected with mixture of lidocaine 2% and Marcaine 0.5% 5 cc.? After that 11 blade was used to make a maldonado on the skin.? 10 cm 14 gauge introducer epidural needle was inserted through the maldonado and advanced to L1- L2 epidural interspace.? The advancement of the needle was performed on anterior posterior and lateral views.? Guitar wire and loss of resistance to air technique were used to locate epidural space.? When guitar wire was spread in the epidural fashion, epidural lead was inserted through the needle and advanced to the middle of? T8 epidural interspace slightly? left to the existing electrode. Impedance was checked and was satisfactory . at this moment patient was awaken of the epidural leads were connected to the testing wires and trial stimulation was performed.? Patient was reporting stumulation corresponding to his low back and right lower extremity pain. Impedance was checked? and it was found to be satisfactory.? Posterior lead placement was verified by lateral x-ray ? The stimulation was found to be? corresponding to the patient's pain. The needles were withdrawn, the stylette wires were removed from the epidural leads.? The anchoring devices were dislodged on the leads and advanced to the level of the skin.? The anchoring devices were sutured with two 0-0 ?Silk sutures per each anchor to the skin of the patient. The central fixation screw of each anchor was rotated until three clicks were heard. The leads were connected to testing device.? Bacitracin ointment was applied to the entrance point of bilateral wires.? Sterile dressing was applied to the patient's back.? The testing device was also taped to the patient's back.? the patient tolerated procedure well he was awaken and taken outside of the operating room to recovery room. he recovered uneventful
[2022-06-16 14:20] LABS: MRSA Nasal PCR NEGATIVE (Negative); SA Nasal PCR POSITIVE (Negative)
[2022-06-16 14:23] VITALS: BP 107/72; PULSE 56; RESP 16; TEMP 37; O2SAT 98
[2022-06-16 14:38] VITALS: BP 106/73; PULSE 55; RESP 18; O2SAT 99
[2022-06-16 14:53] VITALS: BP 104/65; PULSE 64; RESP 20; TEMP 36.4; O2SAT 98
[2022-06-16 15:08] VITALS: BP 119/65; PULSE 64; RESP 20; TEMP 36.4; O2SAT 96
--- NOTE | 2022-06-16 18:56 | PM.EVENT ---
Event Note Date of Service: 06/16/22 Event Note: 46 years old male scheduled for Spinal Cord stimulator trial with MAC . Intraoperatively , patient with excessive airway secretions and continues irritative coughing , unable to tolerate sedation without invasive airway suctioning and management. Discussed with the surgeon and offered general anesthesia . The surgeon requires patient to be awake and communicative during the device testing portion of the procedure . We stopped the sedation and asked the patient if he would tolerate the procedure without any sedation . The patient declined , so the procedure was aborted . Oxygenation , ventilation and all other vital signs remained within normal limits during the encounter .
== END ==
PROVIDERS: Nurse Practitioner Family; PCP Internal Medicine; Visit Provider Anesthesiology
PROC: (CPT 63650; principal; 2022-06-16 13:10)
DX: S97.82XA Crushing injury of left foot, initial encounter (principal); G90.50 Complex regional pain syndrome I, unspecified; M79.672 Pain in left foot; R26.89 Other abnormalities of gait and mobility; X58.XXXA Exposure to other specified factors, initial encounter; Y93.89 Activity, other specified; Y92.9 Unspecified place or not applicable; Y99.0 Civilian activity done for income or pay; Z87.828 Personal history of other (healed) physical injury and trauma; G43.909 Migraine, unspecified, not intractable, without status migrainosus; Z79.1 Long term (current) use of non-steroidal anti-inflammatories (NSAID); F17.210 Nicotine dependence, cigarettes, uncomplicated
CPT/HCPCS: 63650; 87640; 87641; 99499; J0690; J2795

== ENCOUNTER → 2022-06-22 09:22 | Outpatient (BNVA) | payer MEDICAID, SELFPAY | PROVIDERS: PCP Internal Medicine; Visit Provider Anesthesiology | DX: G90.50 Complex regional pain syndrome I, unspecified (principal); G43.009 Migraine without aura, not intractable, without status migrainosus; M54.16 Radiculopathy, lumbar region; M47.816 Spondylosis without myelopathy or radiculopathy, lumbar region; M25.561 Pain in right knee; G89.4 Chronic pain syndrome; S97.82XD Crushing injury of left foot, subsequent encounter; S97.02XD Crushing injury of left ankle, subsequent encounter | CPT/HCPCS: 99212 ==

== ENCOUNTER 2022-07-07 10:00 | Day surgery (SDC) | payer MEDICAID, SELFPAY ==
--- NOTE | ~2022-07-07 | FL_ITS ---
EXAMINATION: XR FLUOROSCOPY WITH IMAGES CLINICAL INFORMATION: Spinal cord stimulation trial. COMPARISON: MR lumbar spine 06/07/2022 TECHNIQUE: Fluoroscopy performed by Dr. Tee Kirkland. Fluoroscopy time: 7.4 minutes. Cumulative Dose: 139 mGy. DAP: 35.4 Gycm2. Images: 3. FINDINGS: There are 2 spinal stimulator electrodes seen ascending the posterior spinal canal. The electrode tips are at level of mid thoracic spine. There is no visible kinking or defect of the leads. There are 2 thoracic vertebrae with loss of height of indeterminate age. FL/FL guidance in OR IMPRESSION: -Fluoroscopy for pain management procedure. -There are two mid thoracic vertebrae with loss of height, indeterminate age.
--- NOTE | 2022-07-07 09:26 | P.HPSUR_ITS ---
Pre-Procedural Eval Section A Date of Service: 07/07/22 The patient is an INPATIENT: No Changes since office visit: Yes Patient answered all questions The History & Physical has been completed within 30 days and I have reviewed it.: No Section B Chief Complaint: Complex regional pain syndrome I, unspecified Details of Present Illness: As above Relevant Family History (Specify if Yes): No Relevant Social History: None Present Medications: see Short Stay Collaborative assessment Medical History: No relevant PMH History of Previous Operations: Relevant previous surgery/procedure and date(s) Allergies: Allergies Allergy/AdvReac Type Severity Reaction Status Date / Time No Known Allergies Allergy Verified 06/22/22 09:56 Review of Systems Sugical H&P ROS: Negative: Constitution, Cardiovascular, Respiratory, Neurological, Psychiatric, Hem-Onc, Allergic/Immunologic, Gastrointestinal, Genitourinary, Musculoskeletal, Integumentary, Endocrine and Eyes/Ears/Nos e/Throat Exam Surgical H&P Exam: Normal: HEENT, Normal: Heart, Normal: Lungs, Normal: Abdomen, Normal: Skin and Normal: Neurological and Significant Findings: Extremities (Complex regional pain syndrome) Plan Diagnosis/Plan: Unchanged I have reviewed the history and physical and performed a pertinent physical examination on my patient. No changes have occurred unless specified.
[2022-07-07 10:17] VITALS: BP 122/70; PULSE 70; RESP 16; TEMP 36.3; O2SAT 96; BMI 22.0
[2022-07-07] MEDS: LORazepam 0.5 MG TABLET 1 MG PO (11:36)
[2022-07-07 13:18] VITALS: BP 121/76; PULSE 64; RESP 18; TEMP 37; O2SAT 98
--- NOTE | 2022-07-07 13:18 | PM.OP ---
Brief Operative Note Date of Service: 07/07/22 Pre-op diagnosis: Complex regional pain syndrome of the right lower extremity Post-op diagnosis: same Procedure: trial of [employer] spinal cord stimulator Implants: none permanent Surgeon: Tee Kirkland MD Anesthesia: local Was an Associate Account Manager used for this Procedure?: No Estimated blood loss (mL): 0 Condition: stable Disposition: PACU
--- NOTE | 2022-07-07 13:22 | W.PM.OPN ---
Operative Note Operative Note Date of Service: 07/07/22 Narrative: Sincere is very pleasant Malawian speaking 46 y.o gentleman who came today into the operating room for trial of spinal cord stimulator [employer] for the treatment of d Complex regional pain syndrome of the left lower extremity, as well as lower back pain radiating to the right lower leg. ?Preoperatively patient received ? cefazolin 2 g approximately 10 minutes before the procedure. After obtaining informed consent the patient was brought to the operating room, HE was positioned prone on operating table, The patient remained fully awake. ?Time-out was performed delineating correct site, side, the nature of the procedure, patient's allergy, preoperative antibiotic if needed.? All operating room staff was participating in OR time-out procedure. Patient's entire back was prepped with Chloraprep twice and draped with full body fenestrated laparoscopy drape.? Sterilely draped C-arm was brought over operating field and square picture of the ? T12-L1 L2 and L3 vertebrae? were demonstrated on the screen.? ?Attention FIRST? was concentrated on the L1-L2 epidural interspace.? The location of the projection of the right pedicle center of the L3 vertebra was found on the skin using C-arm.? This location was injected with mixture of lidocaine 2% and Marcaine 0.5% - 5 cc.? After that 11 blade was used to make a maldonado on the skin.? 10 cm 14 gauge? introducer epidural needle was inserted through the maldonado and advanced to? L1-L2 epidural interspace.? The advancement of the needle was performed on anterior posterior and lateral views.?Loss of resistance to air? technique were used to locate epidural space., epidural lead was inserted through the needle and attempt was made to advanced epidural lead in the posterior epidural space. Significant epidural adhesions were encountered in the patient's epidural space. The attempts to keep the epidural lead in posterior epidural space was met with resistance. several times the straight stylet was changed for court style attend advancement of the attempts were me without any significant success. After that epidural needle was removed and 5 in epidural needle was obtained on the field. It was advanced now to T12-L1 epidural interspace using loss of resistance technique to air and direct x-ray view for control. After needle entered the epidural space and loss of resistance to air was felt guitar wire was inserted into the epidural space and spread in the epidural fashion. After that epidural lead was inserted through the needle and advanced to were the posterior epidural space. Between T11 and T12 significant resistance from epidural adhesion was met again and epidural leads started to fold on itself. The epidural needle was removed and the blue sheath introducer was inserted alongside the body of the epidural lead into the epidural space. That allowed me to keep epidural lead stiff and advance the lead in the posterior epidural space toward top of T8 posterior epidural space. ? .? After that? the location of the projection of the LEFT pedicle center of the L2 vertebra was found on the skin using C-arm.? This location was injected with mixture of lidocaine 2% and Marcaine 0.5% 5 cc.? After that 11 blade was used to make a maldonado on the skin.? 10 cm 14 gauge introducer epidural needle was inserted through the maldonado and advanced to [id number] interspace.? The advancement of the needle was performed on anterior posterior and lateral views.? Guitar wire and loss of resistance to air technique were used to locate epidural space.? When guitar wire was spread in the epidural fashion, epidural lead was inserted through the needle and advanced to the middle of? T8 epidural interspace slightly? left to the existing electrode. Impedance was checked and was satisfactory . at this moment the epidural leads were connected to the testing wires and trial stimulation was performed.? Patient was reporting stumulation corresponding to his low back and right lower extremity pain as well as left lower extremity.. Impedance was checked? and it was found to be satisfactory.? Posterior lead placement was verified by lateral x-ray ? The stimulation was found to be? corresponding to the patient's pain. The needles were withdrawn, the stylette wires were removed from the epidural leads.? The anchoring devices were dislodged on the leads and advanced to the level of the skin.? The anchoring devices were sutured with two 0-0 ?Silk sutures per each anchor to the skin of the patient. The central fixation screw of each anchor was rotated until three clicks were heard. The leads were connected to testing device.? Bacitracin ointment was applied to the entrance point of bilateral wires.? Sterile dressing was applied to the patient's back.? The testing device was also taped to the patient's back.? the patient tolerated procedure well he was awaken and taken outside of the operating room to recovery room. he recovered uneventfully.
== END 2022-07-07 14:12 | disposition home or self-care (01) ==
PROVIDERS: PCP Internal Medicine; Visit Provider Anesthesiology
PROC: (CPT 63650; principal; 2022-07-07 11:30)
DX: G90.521 Complex regional pain syndrome I of right lower limb (principal); G89.4 Chronic pain syndrome; M79.672 Pain in left foot; R26.89 Other abnormalities of gait and mobility; M47.816 Spondylosis without myelopathy or radiculopathy, lumbar region; M25.561 Pain in right knee; M54.16 Radiculopathy, lumbar region; R25.2 Cramp and spasm; S97.0 Crushing injury of ankle; S97.80XA Crushing injury of unspecified foot, initial encounter; Z87.828 Personal history of other (healed) physical injury and trauma; X58.XXXA Exposure to other specified factors, initial encounter; Y93.9 Activity, unspecified; Y92.9 Unspecified place or not applicable; Y99.0 Civilian activity done for income or pay; G43.009 Migraine without aura, not intractable, without status migrainosus; I10 Essential (primary) hypertension; Z79.1 Long term (current) use of non-steroidal anti-inflammatories (NSAID); Z79.899 Other long term (current) drug therapy; F17.210 Nicotine dependence, cigarettes, uncomplicated
CPT/HCPCS: 63650 ×2; C1713; C1778; J0690; J2795

== ENCOUNTER → 2022-07-13 11:06 | Outpatient (BNVA) | payer MEDICAID, SELFPAY | PROVIDERS: PCP Internal Medicine; Visit Provider Anesthesiology | DX: G90.523 Complex regional pain syndrome I of lower limb, bilateral (principal); G43.009 Migraine without aura, not intractable, without status migrainosus; M54.16 Radiculopathy, lumbar region; M47.816 Spondylosis without myelopathy or radiculopathy, lumbar region; M25.561 Pain in right knee; M79.672 Pain in left foot; G89.4 Chronic pain syndrome | CPT/HCPCS: 99212 ==

== ENCOUNTER 2023-02-03 09:42 | Day surgery (SDC) | payer OTHER, SELFPAY ==
--- NOTE | 2023-02-02 11:02 | HO.ANESPROP2 ---
Documented by User: Maria T Camacho NP 02/02/23 11:02 HPI - Anesthesia Eval Consult details Narrative: 47yo M for Spinal Cord Stimulation Implant s/p trial 06/2022 with TIVA PMFSH Active Problems Active Problems: All Active Problems (Updated 06/22/22 @ 10:17 by Tee Kirkland MD) Chronic pain syndrome (Acute) Strain of right gastrocnemius muscle (Acute) Edema (Acute) Right calf pain (Acute) Right knee pain (Acute) Migraine without aura, not intractable (Acute) Lumbar radiculitis (Acute) Lumbar spondylosis (Acute) CRPS (complex regional pain syndrome type I) (Acute) Crushing injury of ankle and foot (Acute) Past Medical History Medical History CRPS (complex regional pain syndrome type I) High blood pressure Lumbar spondylolysis Migraines Myocardial infarction Family History Family History Father No problems noted. Mother No problems noted. Family history of problems with anesthesia: No Surgical History Surgical History Previous back surgery History of Problems with Anesthesia: No Social History Social History (Updated 02/03/23 @ 12:07 by Wen Gonsalves MD) Household Members: Spouse Alcohol intake: never Patient Tobacco Use Status: Current everyday Tobacco user Tobacco use type: Cigarette Cigarettes Per Day: 5 Second Hand Smoke Exposure: No Current occupational status: unemployed Current occupation: right handed Meds Allergies Allergy/AdvReac Type Severity Reaction Status Date / Time No Known Allergies Allergy Verified 02/03/23 10:22 Home Medications Medication Instructions Recorded Confirmed Last Taken Type blood pressure test kit-large #1 ea 02/22/21 02/03/23 Unknown History methocarbamol 750 mg tablet 750 mg PO QID PRN muscle spasm 02/22/21 02/03/23 Unknown History amlodipine 5 mg tablet 5 mg PO DAILY 06/18/21 02/03/23 Unknown History losartan 50 mg-hydrochlorothiazide 1 tab PO DAILY 06/18/21 02/03/23 Unknown History 12.5 mg tablet amitriptyline 25 mg tablet 25 mg PO BEDTIME 06/08/22 02/03/23 Unknown History bupropion HCl 150 mg 24 hr tablet, 150 mg PO DAILY 06/08/22 02/03/23 Unknown History extended release hydroxyzine pamoate 25 mg capsule 25 mg PO TID PRN panic attack 06/08/22 02/03/23 06/16/22 History buspirone 5 mg tablet 5 mg PO TID 02/03/23 02/03/23 Unknown History quetiapine 50 mg tablet 50 mg PO BEDTIME PRN insomnia 02/03/23 02/03/23 Unknown History Exam Exam Date and Time: February 02, 2023 1102 Assessment and Plan Assessment Anesthesia Assessment: Chart Reviewed Final Anesthetic Review Family History of Problems with Anesthesia: No History of Problems with Anesthesia: No Documented by User: Wen Gonsalves MD 02/03/23 12:49 HPI - Anesthesia Eval Consult details Narrative: 47yo M for Spinal Cord Stimulation Implant s/p trial 06/17/2022 with attempted TIVA. Procedure aborted secondary to uncontrollable coughing. Patient is an active smoker. Patient returned on 07/07/22 for placement of implant under local anesthesia. [facility] Active Problems Active Problems: All Active Problems (Updated 02/03/23@ 10:58 by Wen Gonsalves MD) Chronic pain syndrome (Acute) Strain of right gastrocnemius muscle (Acute) Edema (Acute) Right calf pain (Acute) Right knee pain (Acute) Migraine without aura, not intractable (Acute) Lumbar radiculitis (Acute) Lumbar spondylosis (Acute) CRPS (complex regional pain syndrome type I) (Acute) Crush injury of left ankle and foot (Acute) H/o [place]. 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 Denies recent chest pain Past Medical History Medical History CRPS (complex regional pain syndrome type I) High blood pressure Lumbar spondylolysis Migraines Myocardial infarction Family History Family History Father No problems noted. Mother No problems noted. Surgical History Surgical History Previous back surgery Social History Social History (Updated 02/03/23 @ 12:07 by Wen Gonsalves MD) Household Members: Spouse Alcohol intake: never Patient Tobacco Use Status: Current everyday Tobacco user Tobacco use type: Cigarette Cigarettes Per Day: 5 Second Hand Smoke Exposure: No Current occupational status: unemployed Current occupation: right handed Meds Allergies Allergy/AdvReac Type Severity Reaction Status Date / Time No Known Allergies Allergy Verified 02/03/23 10:22 Home Medications Medication Instructions Recorded Confirmed Last Taken Type blood pressure test kit-large #1 ea 02/22/21 02/03/23 Unknown History methocarbamol 750 mg tablet 750 mg PO QID PRN muscle spasm 02/22/21 02/03/23 Unknown History amlodipine 5 mg tablet 5 mg PO DAILY 06/18/21 02/03/23 Unknown History losartan 50 mg-hydrochlorothiazide 1 tab PO DAILY 06/18/21 02/03/23 Unknown History 12.5 mg tablet amitriptyline 25 mg tablet 25 mg PO BEDTIME 06/08/22 02/03/23 Unknown History bupropion HCl 150 mg 24 hr tablet, 150 mg PO DAILY 06/08/22 02/03/23 Unknown History extended release hydroxyzine pamoate 25 mg capsule 25 mg PO TID PRN panic attack 06/08/22 02/03/23 06/16/22 History buspirone 5 mg tablet 5 mg PO TID 02/03/23 02/03/23 Unknown History quetiapine 50 mg tablet 50 mg PO BEDTIME PRN insomnia 02/03/23 02/03/23 Unknown History Exam Height,Weight and Vital Signs: Height 5 ft 8 in Weight 67.132 kg Vital Signs Temp Pulse Resp BP Pulse Ox O2 Del Method 02/03/23 10:28 97.0 F 58 15 139/80 100 Room Air Airway Mallampati Class: II TM Dist: >3cm Neck ROM: Full Loose/Missing/Broken Teeth: Yes (No teeth top, many missing bottom) Heart: RRR Lungs: CTAB Assessment and Plan Assessment Anesthesia Assessment: Anesthesia Plan Discussed Final Anesthetic Review NPO: Yes ASA Class: III Final Preanesthetic Review: No Changes in Pt Med Stat, Meds/Allgs Chart Reviewed, Consent Obtained/Reviewed and Anes Risks/Benef Reviewed Patient Risk: Intermediate Procedure Risk: Low Assessment/Block/Sedation in SS: Assess/Block/Sedation-SS Anesthetic Plan Anesthetic Plan: GA Disposition: Standard PACU
[2023-02-03] VITALS (9 sets, daily range): BP systolic 139–167; BP diastolic 80–107; PULSE 58–77; RESP 15–26; TEMP 36.1–36.7; O2SAT 97–100; BMI 22.5
--- NOTE | ~2023-02-03 | XR_ITS ---
EXAMINATION: XR CHEST CLINICAL INFORMATION: Dyspnea COMPARISON: None available. TECHNIQUE: Frontal view of the chest was obtained. FINDINGS: The cardiac and mediastinal contours are stable. There are coarse lung markings. There is question of a left perihilar infiltrate. The lungs are otherwise clear. No pleural effusion or pneumothorax. 2 leads project over the lower thoracic spine. XR/XR chest 1V IMPRESSION: Question left perihilar infiltrate
--- NOTE | ~2023-02-03 | FL_ITS ---
EXAMINATION: XR FLUOROSCOPY WITH IMAGES CLINICAL INFORMATION: Spinal stimulator implant. COMPARISON: Chest radiograph 02/03/2023. TECHNIQUE: Fluoroscopy Supervised By: Dr. Tee Kirkland. Fluoroscopy Time: 2.4 minutes. Cumulative Dose: 31.7 mGy. DAP: 4.83 Gycm2. Images: 2. FINDINGS: There are 2 spinal stimulator electrodes seen ascending the posterior spinal canal. The electrode tips are at level of mid thoracic spine, tips approximately level superior endplate T8. There is no visible kinking or defect of the leads. FL/FL guidance in OR IMPRESSION: Fluoroscopy for pain management procedure.
--- NOTE | 2023-02-03 10:43 | P.HPSUR_ITS ---
Pre-Procedural Eval Section A Date of Service: 02/03/23 The patient is an INPATIENT: No Changes since office visit: Yes Patient answered all questions The History & Physical has been completed within 30 days and I have reviewed it.: No Section B Chief Complaint: Spondylosis without myelopathy or radiculopathy, Details of Present Illness: as above Relevant Family History (Specify if Yes): No Relevant Social History: None Present Medications: see Short Stay Collaborative assessment Medical History: No relevant PMH History of Previous Operations: Relevant previous surgery/procedure and date(s) Allergies: Allergies Allergy/AdvReac Type Severity Reaction Status Date / Time No Known Allergies Allergy Verified 02/03/23 10:22 Review of Systems Sugical H&P ROS: Negative: Constitution, Cardiovascular, Respiratory, Neurological, Psychiatric, Hem-Onc, Allergic/Immunologic, Gastrointestinal, Genitourinary, Musculoskeletal, Integumentary, Endocrine and Eyes/Ears/ Nose/Throat Exam Surgical H&P Exam: Normal: HEENT, Normal: Heart, Normal: Lungs, Normal: Abdomen, Normal: Skin and Normal: Neurological and Significant Findings: Extremities (Complex regional pain syndrome) Plan Diagnosis/Plan: Unchanged I have reviewed the history and physical and performed a pertinent physical examination on my patient. No changes have occurred unless specified. Time Spent With Patient Time: Total time managing care of this patient today ____ minutes.
[2023-02-03] MEDS: Lactated Ringers 1,000 ML 100 ML IVCONT (10:45)
--- NOTE | 2023-02-03 10:49 | P.OP_ITS ---
Operative Note Operative Note Date of Service: 02/03/23 Narrative: Sincere Is very pleasant Austrian-speaking 47 years old gentleman who came today into the operating room for implantation of spinal cord stimulator for the treatment of pain related to Complex regional pain syndrome of the right lower extremity. he had successful trial of spinal cord stimulation Chic[place]. he was originally consented for general anesthesia by Anesthesia practitioner however questions arise during the examination whether the position of the epidural electrodes should be checked with the patient sensation. I requested anesthesia to change the plans in the operating room for sedation. Preoperatively patient received antibiotic cefasolin 2g approximately 30 minutes before the procedure. After obtaining informed consent patient was brought to the operating room, Hewas positioned prone on the OR table, [employer] monitors were applied and patient was sedated. Time-out was performed delineating correct site, side, the nature of the procedure, patient's allergy, preoperative antibiotic. All operating room staff was participating in OR time-out procedure. Patient's entire back was prepped with DuraPrep twice and draped with full body drape including Ioban film. Sterilely draped C-arm was brought over operating field and square picture of T12, L1, L2 vertebrae were demonstrated on the screen. THE PROJECTION OF L1 and L2 SPINOUS PROCESSES TO THE SKIN WERE INFILTRATED WITH LIDOCAINE 2% MIXED WITH BUPIVACAINE 0.5%. 6 CM LONG VERTICAL INCISION using a 10 blade scalpel WAS PERFORMED IN STRICT MIDLINE VERTICAL FASHION. THOROUGH HEMOSTASIS WAS PERFORMED using electrocautery. Thorough tissue dissections was performed until prevertebral fascia was freed from overlying tissues. Attention FIRST was concentrated on the RIGHT T12-L1 epidural interspace. The location of the projection of the right pedicle center of the L2 vertebra was found on the prevertebral fascia using C-arm. This location was injected with mixture of lidocaine 2% and Marcaine 0.5% 5 cc in approximate direction of needle advancement. After that 10 cm 14 gauge straight introducer epidural needle was inserted through the fascia and advanced toward T12-L1 epidural interspace. The advancement of the needle was performed on anterior posterior and lateral views. Guitar wire and loss of resistance technique were used to locate epidural space. When loss of resistance was felt in the needle, guitar wire was obtained inserted into the needle. guitar wire was spread in the epidural fashion, epidural lead was inserted through the skin and it was advanced to the position in the POSTERIOR EPIDURAL SPACE slightly RIGHT TO THE MIDLINE at the T8 posterior epidural space. After that location of the projection of the LEFT pedicle center of the L2 vertebra was found -using C-arm. This location was injected with mixture of lidocaine 2% and Marcaine 0.5% 5 cc.. . Again here 10 cm 14 gauge straight epidural needle was inserted through the prevertebral fascia and advanced to L1-L2 intervertebral interspace. Loss of resistance to air technique was used to locate epidural space and guitar wire was used to confirm position of the epidural space. .When guitar wire was spread in the epidural fashion, epidural lead was inserted through the needle and advanced to the top of T8 POSTERIOR EPIDURAL SPACE strictly to the midline to the existing right-sided lead. THE LOCATION OF BOTH LEADS WAS VERIFIED ON ANTERIOR POSTERIOR AND LATERAL VIEWS. THE PATIENT WAS AWAKEN and the test of the stimulation was performed. The patient reported stimulation corresponding to his pain. He was resedated after that. After satisfactory position of the leads were established the needles were withdrawn, the stylette wires were removed from the epidural leads. The anchoring devices were dislodged on the leads and advanced to the level of the Fascia. The anchoring devices were advanced along the epidural leads and dislodged and epidural leads at the level of prevertebral fascia. They were sutured to prevertebral fascia with 2 separate Tycron sutures per each anchoring device. The fixating screws was fixed until 3 clicks were heard on each anchoring device. After that the wound was irrigated with copious amount of Vancomycin containing normal saline and packed with Vancomycin soaked 4 x 4. After that attention was concentrated on the left loin of the patient where he wanted the battery to be implanted. 6 cm long horizontal incision was performed 3 cm below the projection to the skin of the left 12th rib. the wound was deepened and widened and thorough hemostasis was performed. The pocket in caudal direction was created to accomodate the battery. Irrigation with vancomycin containing saline was performed.After that the tunneling device was used to connect midline incision and the right upper buttock incision. Thorough hemostasis was performed. The impedance was satisfactory. After that tunneling device was used to connect both wounds. the SCS alpha battery was brought on operating field and epidural leads were connected to the battery. Anchoring sutures were applied to the upper center portion of the pocket wound as well as most lateral upper corner of the wound. The anchoring sutures were threaded through the orifices in the battery and after that they were tied. After that both wounds were thoroughly irrigated with normal saline containing vancomycin. After that 0 polysorb sutures were used to close both wounds. 2-0 polisorb was used to approximate the level of the skin. Danielle were applied to the skin level. Sterile dressing With bacitracin was applied. Abdominal binder was applied. The patient was transferred to the stretcher, awaken, and in stable condition transferred to PACU.
--- NOTE | 2023-02-03 13:53 | P.BOP_ITS ---
Brief Operative Note Date of Service: 02/03/23 Pre-op diagnosis: Complex regional pain syndrome right lower extremity Post-op diagnosis: same Procedure: implantation of [employer] Spinal cord stimulator Implants: [employer] alpha battery and 2 epidural leads. Surgeon: Tee Kirkland MD Anesthesia: MAC Was an Marine Engineering Consultant used for this Procedure?: No Estimated blood loss (mL): 18 Pathology: none sent Condition: stable Disposition: PACU
--- NOTE | 2023-02-03 15:26 | P.EN_ITS ---
Event Note Date of Service: 02/07/23 Event Note: Called by PACU nurse at 2:32pm to see patient who was 'not really waking up'. Patient is s/p Spinal cord Stimulation Implant under MAC anesthesia. Has been in PACU for about 40mins. O/A patient lying in bed, making moaning sounds and periodically breathing fast. Patient is Guyanese-speaking and while waiting for music video director tried to ask about pain. Patient very sleepy but opens eyes with stimulation/calling his name. Not verbalizing.Some ???/trismus noted. VS: HTN (BP 165/101), Tachypnea 26. No arrhythmias on EKG. Lungs CTAB but shallow breathing. Following arrival of music video director, patient questioned again. Admits to some confusion/fear and pain in left lower extremity. Only nodding or shaking head to questions. No facial droop noted. Able to squeeze fingers on both sides, moving both lower extremities, no drooping of mouth with smiling. Some nystagmus noted and some difficulty focusing. Denies taking any medication today. Denies use of street drugs. CXR done secondary to episodes of tachypnea (up to 70s when talking to patient but not sustained). Rate drifts back to 16-20 while resting. CXR- ? left perihilar infiltrate. Of note, patient here in June 2022 for pain procedure- spinal cord stimulator implant trial but procedure had to be aborted because of excessive drooling and coughing. Some underlying infection questioned at that time by anesthesiologist. Patient is a smoker and smoked before arrival to hospital this morning. Today, for anesthesia patient received versed, glycopyrrolate 0.2mg with a 2nd dose of 0.2mg secondary to continued drooling, ketamine 50mg total (not unusual) and fentanyl. After completion of testing for implant placement, patient was sedated with propofol and rest of case was uneventful. Spoke with Dr Kirkland about observing patient for longer and possibly overnight. ? Reaction to ketamine- nystagmus, abnormal behaviour ? Reaction to glycopyrrolate with drowsiness and decreased mental alertness Addendum: Care was handed over to Dr Milan who again spoke with Dr Kirkland and decision was made to transfer patient to ER for further evaluation. Before transfer, patient was more awake, opening eyes to sound, verbalizing. Time Spent With Patient Time: Total time managing care of this patient today 35_ minutes.
== END 2023-02-03 16:20 | disposition home or self-care (01) ==
PROVIDERS: PCP Internal Medicine; Visit Provider Anesthesiology
PROC: (CPT 63685; principal; 2023-02-03 10:50)
DX: M47.816 Spondylosis without myelopathy or radiculopathy, lumbar region (principal); G90.50 Complex regional pain syndrome I, unspecified; I10 Essential (primary) hypertension; I25.2 Old myocardial infarction; G43.909 Migraine, unspecified, not intractable, without status migrainosus; Z79.899 Other long term (current) drug therapy; Z98.890 Other specified postprocedural states; F17.210 Nicotine dependence, cigarettes, uncomplicated; G89.18 Other acute postprocedural pain; Y83.8 Other surgical procedures as the cause of abnormal reaction of the patient, or of later complication, without mention of misadventure at the time of the procedure; Y82.8 Other medical devices associated with adverse incidents; R06.82 Tachypnea, not elsewhere classified; H55.00 Unspecified nystagmus; M79.605 Pain in left leg; R41.0 Disorientation, unspecified
CPT/HCPCS: 63685; 63650 ×2; 71045; 99499; C1713; C1778; C1787; C1820; J0690; J2250; J2795; J3010; J3370

== ENCOUNTER 2023-02-03 15:34 | Emergency (ER) | payer OTHER, SELFPAY ==
--- NOTE | ~2023-02-03 | CT_ITS ---
EXAMINATION: CT ANGIOGRAM NECK WITH CONTRAST CT ANGIOGRAM BRAIN WITH CONTRAST CLINICAL INFORMATION: Altered mental status after sedation. COMPARISON: None. TECHNIQUE: Test bolus sequences followed by intravenous administration 70 mL of Omnipaque 350. Helical imaging was performed in the axial plane from the thoracic inlet to the skull vertex. Delayed postcontrast imaging of the head was also performed. The data was processed at the cardiovascular technologist workstation for generation of MIP sequences. Angled MIPs and volume rendered reformatted images were also generated at an offline 3D workstation. Stenoses are assessed in accordance with NASCET criteria unless otherwise indicated. This CT examination was performed using dose optimization techniques as appropriate, variously including the following: *Automated exposure control *Adjustment of mA and/or kV according to patient size (this includes techniques or standardized protocols for targeted exams where dose is matched to indication/reason for exam; i.e. extremities or head) *Use of iterative reconstruction technique DLP: 1489 mGy-cm FINDINGS: Head CT: There is no intracranial hemorrhage, large acute infarction, or mass lesion. The ventricles are normal in size and configuration without evidence of hydrocephalus. No abnormal enhancement is seen. A developmental venous anomaly seen within the left parietal lobe. The dural venous sinuses are normally opacified. The visualized paranasal sinuses and mastoid air cells are clear. Neck CTA: Aortic arch and great vessel origins are patent. The bilateral common and internal carotid arteries are patent. Both vertebral arteries are patent Head CTA: No large vessel occlusion is seen. The anterior and posterior circulations appear patent. The collaterals appear symmetric. No aneurysm is seen. Non-vascular findings: The cervical soft tissues are within normal limits. There is consolidation within the lingula a small amount of pleural parenchymal thickening/scarring is seen at the bilateral lung apices. Background changes of emphysema are also demonstrated. Spine is intact without significant degenerative changes. No destructive lesions are noted. CT/CT angio head neck stroke IMPRESSION: No acute intracranial abnormality. No hemorrhage, infarction, or vascular occlusion. Consolidation within the lingula in a background of emphysema which could represent infectious or inflammatory process. Following treatment, repeat chest CT recommended given history of emphysema. An endobronchial lesion cannot be excluded.
--- NOTE | ~2023-02-03 | CT_ITS ---
EXAMINATION: CT HEAD WITHOUT CONTRAST (STROKE PROTOCOL) CLINICAL INFORMATION: Stroke protocol. Difficulty waking/unresponsive after sedation. Rule out stroke COMPARISON: None available. TECHNIQUE: Contiguous axial imaging was performed from the skull base to vertex without intravenous administration of contrast. This CT examination was performed using dose optimization techniques as appropriate, variously including the following: *Automated exposure control *Adjustment of mA and/or kV according to patient size (this includes techniques or standardized protocols for targeted exams where dose is matched to indication/reason for exam; i.e. extremities or head) *Use of iterative reconstruction technique DLP: 624 mGy-cm FINDINGS: There is no evidence of an extra-axial collection. There is no evidence of intra or extra-axial hemorrhage. The ventricles and extra-axial CSF spaces are appropriate. Bravo-white matter differentiation is normal. No mass, mass effect or infarct. No skull fracture. Visualized paranasal sinuses, mastoid air cells and middle ears are clear. Small cyst at the left left mandibular condyle at the temporomandibular joint. CT/CT head for stroke IMPRESSION: No acute findings. This critical result was discussed with TIFF Beard at 16:29 hours on 02/03/2023. It was ascertained that the content and urgency of the report was understood at the time of direct communication.
--- NOTE | 2023-02-03 15:37 | ECG_ITS ---
Test Reason : AMS Blood Pressure : / mmHG Vent. Rate : 059 BPM Atrial Rate : 059 BPM P-R Int : 176 ms QRS Dur : 090 ms QT Int : 394 ms P-R-T Axes : 052 040 039 degrees QTc Int : 390 ms Sinus bradycardia with sinus arrhythmia Otherwise normal ECG No previous ECGs available Referred By: Jayne Molina Electronically Signed By:REGINA OSBORNE
[2023-02-03 15:45] VITALS: BP 128/77; PULSE 66; RESP 16; O2SAT 98; BMI 22.0
--- NOTE | 2023-02-03 15:48 | ED_ITS ---
HPI - Neuro Symptoms/Deficit General Chief Complaint: Stroke Stated Complaint: ? stroke Time Seen by Provider: 02/03/23 15:35 Source: patient, RN notes reviewed and old records reviewed Mode of arrival: other History of Present Illness HPI Narrative: 47-year-old Kittitian-speaking male with a past medical history HTN, NE, migraines, presenting to the ED from OR s/p implantation of spinal cord stimulator due to concern for CVA. Reportedly patient with difficulty awakening s/p receiving Ketamine, Versed, & Propofol for sedation, admits initially awoke but having persistent nystagmus and difficulty opening mouth/verbalizing. Patient is 1.5 hours post op. Patient denies complaints at present, states he is numb. Denies chest pain, shortness of breath, abdominal pain, nausea/vomiting Onset (ago): hour(s) Related Data Home Medications Medication Instructions Recorded Confirmed blood pressure test kit-large #1 ea 02/22/21 02/03/23 methocarbamol 750 mg tablet 750 mg PO QID PRN muscle spasm 02/22/21 02/03/23 amlodipine 5 mg tablet 5 mg PO DAILY 06/18/21 02/03/23 losartan 50 mg-hydrochlorothiazide 1 tab PO DAILY 06/18/21 02/03/23 12.5 mg tablet amitriptyline 25 mg tablet 25 mg PO BEDTIME 06/08/22 02/03/23 bupropion HCl 150 mg 24 hr tablet, 150 mg PO DAILY 06/08/22 02/03/23 extended release hydroxyzine pamoate 25 mg capsule 25 mg PO TID PRN panic attack 06/08/22 02/03/23 buspirone 5 mg tablet 5 mg PO TID 02/03/23 02/03/23 quetiapine 50 mg tablet 50 mg PO BEDTIME PRN insomnia 02/03/23 02/03/23 Previous Rx's Medication Instructions Recorded magnesium glycinate 100 mg tablet 400 mg PO DAILY migraine 30 days 06/06/22 #120 tabs cephalexin 500 mg tablet 1,000 mg PO Q8H 16 days #96 tabs 02/03/23 doxycycline hyclate 100 mg capsule 100 mg PO BID 10 days #20 caps 02/03/23 oxycodone 5 mg tablet 5 mg PO Q6H PRN postoperative pain 02/03/23 5 days #20 tabs Allergies Allergy/AdvReac Type Severity Reaction Status Date / Time No Known Allergies Allergy Verified 02/03/23 15:47 Review of Systems Review of Systems: Constitutional: No Fever Cardiovascular: No Chest Pain, No SOB Respiratory: No Cough, No Dyspnea Gastrointestinal: No Nausea, No Vomiting, No Diarrhea, No Constipation, No Abdominal pain Musculoskeletal: No joint pain Skin: No Skin Lesions, No rash Neuro: No Weakness, + Numbness, +AMS Yes all other systems are reviewed and are negative Constitutional: Constitutional: Reports as per HPI Neurologic: Denies Abnormal speech present [facility] Past Medical History Attestation statement: The following information was validated with the patient. Source: old records reviewed Medical History CRPS (complex regional pain syndrome type I) High blood pressure Lumbar spondylolysis Migraines Myocardial infarction Surgical History Previous back surgery Family History Family History Father No problems noted. Mother No problems noted. Social History Social History Household Members: Spouse Alcohol intake: never Patient Tobacco Use Status: Current everyday Tobacco user Tobacco use type: Cigarette Cigarettes Per Day: 5 Second Hand Smoke Exposure: No Advance Directives: No Advance Directives Information Provided: Yes Current occupational status: unemployed Current occupation: right handed Physical Exam Vital Signs: Vital Signs: Last Vital Signs Pulse 66 02/03/23 15:45 Resp 16 02/03/23 15:45 BP 128/77 02/03/23 15:45 Pulse Ox 98 02/03/23 15:45 O2 Del Method Room Air 02/03/23 15:45 BMI result Body Mass Index 22.0 Const: Other: Lethargic, easily arousable General: no acute distress Orientation/consciousness: oriented to place and oriented to time HEENT: Head: Yes normal to inspection and Yes atraumatic Ears: hearing grossly normal bilaterally General nose exam: Normal external nose present Face and sinus: Yes normal facial exam Eyes: General: appearance normal, both eyes and all related structures EOM: EOMs intact bilaterally and Nystagmus present Neck: Neck: Yes normal visual inspection and Yes no meningeal signs Resp: Effort & Inspection: normal respiratory effort and no respiratory distress Auscultation: clear to auscultation bilaterally, no rhonchi and no wheezes Cardio: Rate: regular rate Heart sounds: S1 normal heart sound present and S2 normal heart sound present GI: Inspection: Yes normal to inspection Palpation (GI): Soft to palpation, nontender, no guarding and not rigid Skin: Rashes: no rashes Wounds: no wounds Neuro: Other: (wrong year) General: oriented to place, oriented to time, tone normal, moves all extremities, no meningeal signs, no focal motor deficits and CN's II-XI intact bilaterally Cranial nerves: Yes CN's II-XII intact bilaterally, Yes Bila terally intact EOM present and Yes Nystagmus present horizontal Speech: No Abnormal speech present Motor exam (neuro): 5/5 motor strength present throughout Extrem: General: Yes normal to inspection Course Course Course Narrative: -Chest x-ray from earlier today: XR chest 1V IMPRESSION: Question left perihilar infiltrate >1630--ED care transferred to TIFF Mcfarlane pending labs, imaging, and re-evaluation Medications Administered Discontinued Medications Generic Name Dose Route Start Last Admin Trade Name Freq PRN Reason Stop Dose Admin Iohexol 70 ml 02/03/23 16:28 02/03/23 16:28 Iohexol 350 Mg/Ml 100 Ml Infus..Btl IV 02/03/23 16:29 70 ml ONCE ONE Administration Medical Decision Making Medical Decision Making [facility] Narrative: 47-year-old Kitt[place]-speaking male with a past medical history HTN, NE, migraines, presenting to the ED from OR s/p implantation of spinal cord stimulator due to concern for CVA. On exam vital signs stable, lethargic however easily arousable, A&Ox2, exam otherwise nonfocal. No slurred speech. Concern for lethargy secondary to sedation/multiple medications vs CVA. Rule out metabolic/infectious etiologies. Plan: EKG, labs, CXR, CT head, CTA head and neck, UA, re-evaluate Please refer to course for remaining clinical decision making, interpretation of labs/imaging results, and discussions with consultants and/or family members. Differential Diagnosis Differential Diagnoses: The differential diagnosis associated with the presentation includes As above Admission/Observation Consideration of admission/observation: Escalation of care including admission/observation considered Consult Healthcare Provider Management of the patient was discussed with: Meter Repairer Helper Lab Data MDM Lab Attestation statement: I reviewed the patient's lab results. Radiology Impression Discussion of test interpretation with radiology: I have reviewed the radiologist's reading. External Record Review External record reviewed: Inpatient record, Office record, Outpatient record, Prior outpatient labs, Prior outpatient radiology, Primary care record and Outside ED record Tests considered The following testing was considered but not selected: As above NIH Stroke Scale Internal: Initial- Upon Arrival Level of Consciousness: Alert Level of Consciousness Questions: Answers both questions correctly Level of Consciousness Commands: Performs both tasks correctly Best Gaze: Normal Visual: No visual loss Facial Palsy: Normal Motor Arm (Right): No drift Motor Arm (Left): No drift Motor Leg (Right): No drift Motor Leg (Left): No drift Limb Ataxia: Absent Sensory: Normal Best Language: No aphasia Dysarthia: Normal Extinction and Inattention: No abnormality Score: 0 Critical Care Time Critical Care Time Critical Care Time: Yes Total Critical Care Time: 40 Attestation: I have personally provided critical care time exclusive of time spent on separately billable procedures. Time includes review of lab data, radiology results, discussion with consultants, and monitoring for potential deco mpensation. Intervention performed as documented. Discharge Plan Discharge Clinical Impression: Lethargy, Pneumonia Patient Disposition: Still a Patient Prescriptions: New doxycycline hyclate 100 mg capsule 100 mg PO BID 10 Days Qty: 20 0RF No Action magnesium glycinate 100 mg tablet 400 mg PO DAILY 30 Days Qty: 120 0RF buspirone 5 mg tablet 5 mg PO TID quetiapine 50 mg tablet 50 mg PO BEDTIME PRN (Reason: insomnia) oxycodone 5 mg tablet 5 mg PO Q6H PRN (Reason: postoperative pain) 5 Days Qty: 20 0RF Rx Instructions: Partial Fill upon patient request. cephalexin 500 mg tablet 1,000 mg PO Q8H 16 Days Qty: 96 1RF (DME) blood pressure test kit-large Kit See Rx Instructions .ROUTE DAILY Qty: 1 Rx Instructions: As directed methocarbamol 750 mg tablet 750 mg PO QID PRN (Reason: muscle spasm) amlodipine 5 mg tablet 5 mg PO DAILY losartan-hydrochlorothiazide 50-12.5 mg tablet 1 tab PO DAILY bupropion HCl 150 mg tablet extended release 24 hr 150 mg PO DAILY amitriptyline 25 mg tablet 25 mg PO BEDTIME hydroxyzine pamoate 25 mg capsule 25 mg PO TID PRN (Reason: panic attack)
[2023-02-03] MEDS: iohexoL 350 MG/ML 100 ML INFUS..BTL 70 ML IV (16:28)
[2023-02-03 16:54] VITALS: BP 145/83; PULSE 57; RESP 20; O2SAT 99
[2023-02-03 17:05] LABS: MANUAL DIFF FLAG NO
[2023-02-03 17:08] LABS: Appearance Urine Clear; Color Urine Yellow; Glucose Urine UA Negative (Negative); Leukocyte Esterase Urine Negative (Negative); Nitrite Urine Negative (Negative); PH 7.5 (5.0-9.0); Specific Gravity - Urine >= 1.030 (1.005-1.025); Urine Blood Negative (Negative); Urine Ketones Negative (Negative); Urine Protein Negative (Neg-Trace)
[2023-02-03 17:13] LABS: INTERNATIONAL NORM RATIO 1.1 (0.9-1.1); Prothrombin Time 12.3 SEC (10.0-13.1)
[2023-02-03 17:16] LABS: Partial Thromboplastin Time 33.3 SEC (26.0-36.4)
[2023-02-03 17:17] LABS: Basophils Percent Auto 0.3 % (0-2); Eosinophils Percent Auto 0.3 % (0-4); Hematocrit 43.4 % (42.0-52.0); Hemoglobin 14.7 g/dl (14.0-18.0); Imm Gran Abs Auto 0.05 X10*3/uL (0.00-0.03); Imm Gran Pct Auto 0.4 % (0.0-0.4); Lymphocytes Absolute Auto 1.8 X10*3/uL (1.2-4.9); Lymphocytes Percent Auto 15.7 % (20-40); Mean Corpuscular HGB Conc 33.9 g/dl (31.0-36.0); Mean Corpuscular Hemoglobin 29.8 pg (27.0-33.0); Monocytes Absolute Auto 0.4 X10*3/uL (0.1-1.2); Monocytes Percent Auto 3.3 % (2-11); Neutrophils Absolute Auto 9.4 x10*3/uL (2.0-8.3); Platelet Count 212 X10*3/uL (160-400); Red Blood Count 4.93 X10*6/uL (4.60-5.80); Red Cell Distribution Width 13.4 % (11.0-16.0); White Blood Count 11.7 X10*3/uL (4.8-10.8)
[2023-02-03 17:27] LABS: Alanine Aminotransferase 17 U/L (0-40); Albumin Level 4.1 g/dL (3.5-5.0); Alkaline Phosphatase 91 U/L (39-117); Anion Gap 11 (12-20); Aspartate Amino Transferase 17 U/L (5-37); Bilirubin Direct 0.2 mg/dL (0.0-0.5); Bilirubin Total 0.5 mg/dL (0.0-1.0); Blood Urea Nitrogen 11 mg/dL (9-16); Calcium 9.2 mg/dL (8.4-10.2); Carbon Dioxide 25 mmol/L (22-29); Chloride 103 mmol/L (96-108); Creatinine Clr Calc Pharmacy 98.9; Estimated Glomerular Filt Rate > 60; Glucose Random 92 mg/dL (60-115); Potassium 4.4 mmol/L (3.3-5.1); Sodium 135 mmol/L (135-145); Total Protein 7.1 g/dL (6.5-8.0)
[2023-02-03 17:43] LABS: Troponin-I High Sensitivity < 2.7 ng/L (<3.5-35.0)
--- NOTE | 2023-02-03 17:50 | ED_ITS ---
HPI - Neuro Symptoms/Deficit General Chief Complaint: Stroke Stated Complaint: ? stroke Time Seen by Provider: 02/03/23 15:35 Source: patient, RN notes reviewed and old records reviewed Mode of arrival: other Related Data Home Medications Medication Instructions Recorded Confirmed blood pressure test kit-large #1 ea 02/22/21 02/03/23 methocarbamol 750 mg tablet 750 mg PO QID PRN muscle spasm 02/22/21 02/03/23 amlodipine 5 mg tablet 5 mg PO DAILY 06/18/21 02/03/23 losartan 50 mg-hydrochlorothiazide 1 tab PO DAILY 06/18/21 02/03/23 12.5 mg tablet amitriptyline 25 mg tablet 25 mg PO BEDTIME 06/08/22 02/03/23 bupropion HCl 150 mg 24 hr tablet, 150 mg PO DAILY 06/08/22 02/03/23 extended release hydroxyzine pamoate 25 mg capsule 25 mg PO TID PRN panic attack 06/08/22 02/03/23 buspirone 5 mg tablet 5 mg PO TID 02/03/23 02/03/23 quetiapine 50 mg tablet 50 mg PO BEDTIME PRN insomnia 02/03/23 02/03/23 Previous Rx's Medication Instructions Recorded magnesium glycinate 100 mg tablet 400 mg PO DAILY migraine 30 days 06/06/22 #120 tabs cephalexin 500 mg tablet 1,000 mg PO Q8H 16 days #96 tabs 02/03/23 doxycycline hyclate 100 mg capsule 100 mg PO BID 10 days #20 caps 02/03/23 oxycodone 5 mg tablet 5 mg PO Q6H PRN postoperative pain 02/03/23 5 days #20 tabs Allergies Allergy/AdvReac Type Severity Reaction Status Date / Time No Known Allergies Allergy Verified 02/03/23 15:47 [facility] Past Medical History Medical History CRPS (complex regional pain syndrome type I) High blood pressure Lumbar spondylolysis Migraines Myocardial infarction Surgical History Previous back surgery Family History Family History Father No problems noted. Mother No problems noted. Social History Social History Household Members: Spouse Alcohol intake: never Patient Tobacco Use Status: Current everyday Tobacco user Tobacco use type: Cigarette Cigarettes Per Day: 5 Second Hand Smoke Exposure: No Advance Directives: No Advance Directives Information Provided: Yes Current occupational status: unemployed Current occupation: right handed Physical Exam Vital Signs: Vital Signs: Last Vital Signs Pulse 57 02/03/23 16:54 Resp 20 02/03/23 16:54 BP 145/83 H 02/03/23 16:54 Pulse Ox 99 02/03/23 16:54 O2 Del Method Room Air 02/03/23 16:54 BMI result Body Mass Index 22.0 Course Reevaluation(s) Reevaluation #1: Patient's CBC with slight leukocytosis. Chemistry unremarkable. Troponin negative, EKG nonischemic, unlikely ACS. Coags within normal limits. UA without infection. CT head no acute findings. CTA of head and neck, no acute intracranial abnormality, no hemorrhage no infarction or vascular occlusion. Concerns for pneumonia both on CTA and CT of chest. Will discharge on doxycycline. Educated patient on diagnosis and treatment plan, answered all question, patient verbalizes understanding. At this time patient will be discharged home, advised to return with new or worsening symptoms. Educated on worrisome signs and symptoms and when to return. At this time I feel comfortable discharge home. At time of discharge patient alert and oriented x4. Neuro nonfocal. Acting normal per . Time: 17:52 Medications Administered Discontinued Medications Generic Name Dose Route Start Last Admin Trade Name Freq PRN Reason Stop Dose Admin Iohexol 70 ml 02/03/23 16:28 02/03/23 16:28 Iohexol 350 Mg/Ml 100 Ml Infus..Btl IV 02/03/23 16:29 70 ml ONCE ONE Administration Medical Decision Making Lab Data 02/03/23 17:01 02/03/23 17:01 Labs: Lab Results 02/03/23 02/03/23 02/03/23 Range/Units 17:01 17:01 17:01 WBC 11.7 H (4.8-10.8) X10*3/uL RBC 4.93 (4.60-5.80) X10*6/uL Hgb 14.7 (14.0-18.0) g/dl Hct 43.4 (42.0-52.0) % MCV 88.0 (80.0-98.0) fL MCH 29.8 (27.0-33.0) pg MCHC 33.9 (31.0-36.0) g/dl RDW 13.4 (11.0-16.0) % Plt Count 212 (160-400) X10*3/uL MPV 11.0 (9.4-12.4) fL Immature Gran % (Auto) 0.4 (0.0-0.4) % Neut % (Auto) 80.0 H (45-73) % Lymph % (Auto) 15.7 L (20-40) % Kimble % (Auto) 3.3 (2-11) % Eos % (Auto) 0.3 (0-4) % Baso % (Auto) 0.3 (0-2) % Lymph # (Auto) 1.8 (1.2-4.9) X10*3/uL Kimble # (Auto) 0.4 (0.1-1.2) X10*3/uL Eos # (Auto) 0.0 (0.0-0.4) X10*3/uL Baso # (Auto) 0.0 (0.0-0.2) X10*3/uL Abs Immat Gran (auto) 0.05 H (0.00-0.03) X10*3/uL Absolute Neuts (auto) 9.4 H (2.0-8.3) x10*3/uL Absolute Nucleated RBC 0.000 (0.0-0.012) X10*3/uL Nucleated RBC % (auto) 0.0 (0.0-0.2) /100WBC PT 12.3 (10.0-13.1) SEC INR 1.1 (0.9-1.1) APTT 33.3 (26.0-36.4) SEC Sodium 135 (135-145) mmol/L Potassium 4.4 (3.3-5.1) mmol/L Chloride 103 (96-108) mmol/L Carbon Dioxide 25 (22-29) mmol/L Anion Gap 11 L (12-20) BUN 11 (9-16) mg/dL Creatinine 0.84 (0.5-1.4) mg/dL Estim Creat Clear Calc 98.9 Estimated GFR > 60 Random Glucose 92 (60-115) mg/dL Calcium 9.2 (8.4-10.2) mg/dL Magnesium 2.0 (1.6-2.6) mg/dL Total Bilirubin 0.5 (0.0-1.0) mg/dL Direct Bilirubin 0.2 (0.0-0.5) mg/dL AST 17 (5-37) U/L ALT 17 (0-40) U/L Alkaline Phosphatase 91 (39-117) U/L Troponin I High Sens (<3.5-35.0) ng/L Total Protein 7.1 (6.5-8.0) g/dL Albumin 4.1 (3.5-5.0) g/dL Urine Color Urine Appearance Urine pH (5.0-9.0) Ur Specific [place] (1.005-1.025) Urine Protein (Neg-Trace) mg/dL Urine Glucose (UA) (Negative) mg/dL Urine Ketones (Negative) mg/dL Urine Blood (Negative) Urine Nitrite (Negative) Ur Leukocyte Esterase (Negative) 02/03/23 02/03/23 Range/Units 17:01 17:01 WBC (4.8-10.8) X10*3/uL RBC (4.60-5.80) X10*6/uL Hgb (14.0-18.0) g/dl Hct (42.0-52.0) % MCV (80.0-98.0) fL MCH (27.0-33.0) pg MCHC (31.0-36.0) g/dl RDW (11.0-16.0) % Plt Count (160-400) X10*3/uL MPV (9.4-12.4) fL Immature Gran % (Auto) (0.0-0.4) % Neut % (Auto) (45-73) % Lymph % (Auto) (20-40) % Kimble % (Auto) (2-11) % Eos % (Auto) (0-4) % Baso % (Auto) (0-2) % Lymph # (Auto) (1.2-4.9) X10*3/uL Kimble # (Auto) (0.1-1.2) X10*3/uL Eos # (Auto) (0.0-0.4) X10*3/uL Baso # (Auto) (0.0-0.2) X10*3/uL Abs Immat Gran (auto) (0.00-0.03) X10*3/uL Absolute Neuts (auto) (2.0-8.3) x10*3/uL Absolute Nucleated RBC (0.0-0.012) X10*3/uL Nucleated RBC % (auto) (0.0-0.2) /100WBC PT (10.0-13.1) SEC INR (0.9-1.1) APTT (26.0-36.4) SEC Sodium (135-145) mmol/L Potassium (3.3-5.1) mmol/L Chloride (96-108) mmol/L Carbon Dioxide (22-29) mmol/L Anion Gap (12-20) BUN (9-16) mg/dL Creatinine (0.5-1.4) mg/dL Estim Creat Clear Calc Estimated GFR Random Glucose (60-115) mg/dL Calcium (8.4-10.2) mg/dL Magnesium (1.6-2.6) mg/dL Total Bilirubin (0.0-1.0) mg/dL Direct Bilirubin (0.0-0.5) mg/dL AST (5-37) U/L ALT (0-40) U/L Alkaline Phosphatase (39-117) U/L Troponin I High Sens < 2.7 (<3.5-35.0) ng/L Total Protein (6.5-8.0) g/dL Albumin (3.5-5.0) g/dL Urine Color Yellow Urine Appearance Clear Urine pH 7.5 (5.0-9.0) Ur Specific [place] >= 1.030 H (1.005-1.025) Urine Protein Negative (Neg-Trace) mg/dL Urine Glucose (UA) Negative (Negative) mg/dL Urine Ketones Negative (Negative) mg/dL Urine Blood Negative (Negative) Urine Nitrite Negative (Negative) Ur Leukocyte Esterase Negative (Negative) Discharge Plan Discharge Clinical Impression: Lethargy, Pneumonia Patient Disposition: Home, Self-Care Instructions: Fatigue (ED), Pneumonia (ED) Additional Instructions: Take your medications as prescribed. If you were prescribed antibiotics today, it is important that you take your medication to their entirety, do not skip any doses, do not finish them early. Follow-up with your primary care provider this week. Return to the emergency department with new or worsening symptoms. Such as fevers, chills, chest pain, shortness of breath, nausea, vomiting, dizziness, headache, vision changes, lethargy In case of emergency call 911 Prescriptions: New doxycycline hyclate 100 mg capsule 100 mg PO BID 10 Days Qty: 20 0RF No Action magnesium glycinate 100 mg tablet 400 mg PO DAILY 30 Days Qty: 120 0RF buspirone 5 mg tablet 5 mg PO TID quetiapine 50 mg tablet 50 mg PO BEDTIME PRN (Reason: insomnia) oxycodone 5 mg tablet 5 mg PO Q6H PRN (Reason: postoperative pain) 5 Days Qty: 20 0RF Rx Instructions: Partial Fill upon patient request. cephalexin 500 mg tablet 1,000 mg PO Q8H 16 Days Qty: 96 1RF (DME) blood pressure test kit-large Kit See Rx Instructions .ROUTE DAILY Qty: 1 Rx Instructions: As directed methocarbamol 750 mg tablet 750 mg PO QID PRN (Reason: muscle spasm) amlodipine 5 mg tablet 5 mg PO DAILY losartan-hydrochlorothiazide 50-12.5 mg tablet 1 tab PO DAILY bupropion HCl 150 mg tablet extended release 24 hr 150 mg PO DAILY amitriptyline 25 mg tablet 25 mg PO BEDTIME hydroxyzine pamoate 25 mg capsule 25 mg PO TID PRN (Reason: panic attack) Referrals: Physician,Unknown J [Primary Care Provider] - 2 days Stand Alone Forms: Work/School Release
== END 2023-02-03 18:04 | disposition home or self-care (01) ==
PROVIDERS: Physician Assistant; Emergency Provider Emergency Medicine
DX: R53.83 Other fatigue (principal); J18.9 Pneumonia, unspecified organism; I10 Essential (primary) hypertension; I25.2 Old myocardial infarction; F17.210 Nicotine dependence, cigarettes, uncomplicated; Z96.82 Presence of neurostimulator; Z79.899 Other long term (current) drug therapy
CPT/HCPCS: 36415; 70450; 70496; 70498; 80048; 80076; 81003; 83735; 84484; 85025; 85610; 85730; 93005; 99284; Q9967

== ENCOUNTER → 2023-02-09 10:24 | Outpatient (BNVA) | payer OTHER, SELFPAY | PROVIDERS: PCP Internal Medicine; Visit Provider Anesthesiology | DX: G90.50 Complex regional pain syndrome I, unspecified (principal); G43.009 Migraine without aura, not intractable, without status migrainosus; M54.16 Radiculopathy, lumbar region; M47.816 Spondylosis without myelopathy or radiculopathy, lumbar region; M25.561 Pain in right knee; Z96.82 Presence of neurostimulator; S97.0 Crushing injury of ankle; S00-T88 Injury, poisoning and certain other consequences of external causes | CPT/HCPCS: 99212 ==

== ENCOUNTER → 2023-02-16 10:11 | Outpatient (BNVA) | payer OTHER, SELFPAY | PROVIDERS: PCP Internal Medicine; Visit Provider Anesthesiology | DX: M54.16 Radiculopathy, lumbar region (principal); G90.50 Complex regional pain syndrome I, unspecified; G43.009 Migraine without aura, not intractable, without status migrainosus; M47.816 Spondylosis without myelopathy or radiculopathy, lumbar region; M25.561 Pain in right knee; S97.0 Crushing injury of ankle; S00-T88 Injury, poisoning and certain other consequences of external causes; G89.4 Chronic pain syndrome | CPT/HCPCS: 99212 ==

== ENCOUNTER 2023-03-27 10:06 | Outpatient (AMB) | payer OTHER, SELFPAY ==
--- NOTE | 2023-03-27 10:09 | A.OFFVIS_ITS ---
Intake Vital Signs 03/27/23 10:13 Height 5 ft 8 in Weight 168 lb BMI 25.5 BP 138/76 Blood Pressure Location Rt brachial Position Sitting Respiration 16 Pulse 78 Pulse Source Pulse Oximeter Pulse Oximetry (%) 94 Oxygen Delivery Method Room Air Intake Visit Reasons: 6 weeks follow up Intake Note: patient comes in for follow up. Allergies No Known Allergies Allergy (Verified 03/27/23 10:13) HPI HPI Comments History of Present Illness Details Sincere is pleasant 46 year old male who presents to the office after trial of spinal cord stimulator [employer].? He continues to reports more than 80% pain relief on the device.? He reports better mobility better social interactions better activities of daily living.? He reports and his anuj spaulding better night sleep.? He also reports excellent pain relief in the axial back pain. He reports that the left lower extremity continues to swell up but he does not feel pain in the leg or foot anymore. He is suffering from Complex regional pain syndrome of the left lower extremity as below. I recommended him to apply Esequiel wrap to the lower extremity or use compression stockings on the left lower extremity, ideally he would be using both of them intermittently. I gave him prescription on the paper script to bring to [facility] to purchase compression stockings. History of attempt of trial of SCS [employer] under sedation which was not completed because of extensive bronchial secretion, after that the trial was rescheduled on 07/07/2022 without any sedation while awake.? ?He went for implantation of [employer] spinal cord stimulation on 02/03/2023. He developed obfuscation and difficulty speaking postop. Anesthesiologist suspected the stroke and he was admitted to emergency room to perform stat CT. Stat head CT was negative for stroke. He eventually recovered uneventfully and went home after that. At this moment he may expand slowly he has limitations on mobility and lifting it has been 6 weeks since last implant. Prior: complaints of persistent left foot pain due to a work related crush injury in 2019. He was last seen in this office on 07/06/21 by Cassie MCMULLEN. Patient was diagnosed with left lower extremity CRPS last year. He passed his behavioral evaluation a year ago with no contraindication and was planning for SCS trial to alleviate his left foot pain. Patient has significant tenderness over his left foot in the lateral column, joint line and dorsal aspects of left toes and limited range of motion of the left foot. He continues to have gait challenges with balance and lower extremity decreased strength on the left and walks primarily on the lateral column of his left foot. Patient is closely followed by [facility] orthopedics with considerations to repeat left foot MRI due to significant motion artifact degrading images. He has completed extensive physical therapy on 07/17/2020-12/17/2020 with continued pain and gait balance issues. Patient has trialed and failed conservative treatments with regular follow ups through orthopedics as well this office. Patient will proceed with gait analysis through PT. SCS trial was denied and is currently undergoing an appealing process. evaluation was resubmitted on 05/11/22 as it is only valid for one year. He also complains on mostly axial and intermittent radiation of his lower back back to his right lower leg posteriorly with numbness and cramping in his toes. Pain increased with walking and the way he distributes his weight with gait has changed since left foot injury. He denies any abdominal or groin pain, bowel or bladder incontinence or saddle anesthesia. No previous lumbar spine imaging is available for review. Patient reports he had recently been to ER with bilateral leg pain. No DVT demonstrated in the right lower extremity and large suprapatellar joint effusion was noted per right knee xray and RLE duplex US. Patient reports he has upcoming othopedic visit to follow up on right knee pain. He denies any recent injury, falls, or trauma. He has tried icy hot and OTC medications with no improvement. He did note some improvement with lidocaine.? His pain is constant and rates the pain a 10/10. He describes the pain as burning with associated numbness and tingling which is most severe at night time. He states the pain is interfering with sleep, activities of daily living and he cannot function normally.? Denies any chiropractic manipulation, massage or acupuncture. Denies any previous injections. He had a CT of his ankle, this report is in the chart.Patient is a pleasant 46 year old male who presents to the office with complaints of persistent left foot pain due to a work related crush injury in 2019. He was last seen in this office on 07/06/21 by Cassie MCMULLEN. Patient was diagnosed with left lower extremity CRPS last year. He passed his behavioral evaluation a year ago with no contraindication and was planning for SCS trial to alleviate his l eft foot pain. Patient has significant tenderness over his left foot joint line and dorsal aspects of left toes and limited range of motion of the left foot,gait challenges with balance and lower extremity decreased strength on the left and walks primarily on the lateral column of his left foot. He has completed extensive physical therapy on 07/17/2020-12/17/2020 with continued pain and gait balance issues. Patient failed conservative treatments with regular follow ups through orthopedics as well this office. SCS trial was denied and is currently undergoing an appealing process. evaluation was resubmitted on 05/11/22 as it is only valid for one year. Today the patient also presents with mostly axial and intermittent radiation of his lower back back to his right lower leg posteriorly with numbness and cramping in his toes. Pain increased with walking and the way he distributes his weight with gait has changed since left foot injury. He denies any abdominal or groin pain, bowel or bladder incontinence or saddle anesthesia. No previous lumbar spine imaging is available for review. Patient reports he had recently been to ER with bilateral leg pain. No DVT demonstrated in the right lower extremity and large suprapatellar joint effusion was noted per right knee xray and RLE duplex US. Patient reports he has upcoming othopedic visit to follow up on right knee pain. He denies any recent injury, falls, or trauma. Patient also reports chronic migraines with headaches, less than 15 episodes per month. He denies any precipitating causes of the migraine headaches and reports that he always had headaches, especially with stress, inadequate sleep or due to certain foods. He denies auras, visual disturbances but notes sensitivity to light and loud noises with migraines. Patient has been managing his headaches with naproxen, amitriptyline and lifestyle modifications. We will add Riboflavin (vitamin B2) and magnesium for management of his migraine headaches. PRIOR: Sincere is a pleasant 45 year old male who presents to the office with complaints of persistent left foot pain. He was at work when a pallet noelle ran over his foot, sustaining a crush injury 05/20/2020. He was evaluated by [facility] orthopedics who did not feel he was a surgical candidate and treated him with conservative measures. He had completed physical therapy but did not have any notable improvements. Since the injury he reports his pain is increasing as well as traveling up his leg, to approximately the thigh. He states having persistent swelling on the left foot as well as hyperalgesia and stiffness. He has difficulty wearing any footwear due to the pain. Most of his pain starts in the medial malleous and radiates to the lateral malleous. He has tried icy hot and OTC medications with no improvement. He did note some improvement with lidocaine.? His pain is constant and rates the pain a 10/10. He describes the pain as burning with associated numbness and tingling which is most severe at night time. He states the pain is interfering with sleep, activities of daily living and he cannot function normally.? Denies any chiropractic manipulation, massage or acupuncture. Denies any previous injecti ons. He had a CT of his ankle, this report is in the chart. [facility] Medical History CRPS (complex regional pain syndrome type I) High blood pressure Lumbar spondylolysis Migraines Myocardial infarction Surgical History Previous back surgery Family History Father No problems noted. Mother No problems noted. Social History Household Members: Spouse Alcohol intake: never Patient Tobacco Use Status: Current everyday Tobacco user Tobacco use type: Cigarette Cigarettes Per Day: 5 Second Hand Smoke Exposure: No Current occupational status: unemployed Current occupation: right handed Review of Systems Const All systems reviewed & are unremarkable except as noted in HPI and below ENT Denies Normal hearing present Neuro Denies Normal hearing present, Denies confusion and Denies Sensory deficit (Neuro) Psych Denies confusion Physical Exam Vital Signs: Last Vital Signs Pulse 78 03/27/23 10:13 Resp 16 03/27/23 10:13 BP 138/76 03/27/23 10:13 Pulse Ox 94 03/27/23 10:13 Oxygen Delivery Method Room Air 03/27/23 10:13 BMI result Body Mass Index 25.5 Const General: No confusion Nutritional Appearance: average body habitus Orientation/consciousness: No confusion Limitations: physical limitations (antalgic gait on the left) HEENT Head: Yes normal to inspection, Yes normocephalic, Yes atraumatic, No occipital foramen tenderness, No scalp tenderness and No Temporal artery tenderness present Ears: hearing grossly normal bilaterally General nose exam: No nasal discharge present Face and sinus: Yes normal facial exam, Yes sinuses nontender and Yes face symmetric Eyes General: appearance normal, both eyes and all related structures Visual Goins: normal visual goins by confrontation Alignment and Position: alignment normal Pupils: Equal, round and reactive pupils present EOM: EOMs intact bilaterally Neck Neck: Yes normal visual inspection, Yes full ROM, Yes no lymphadenopathy, Yes supple, No anterior neck swelling and Yes no JVD Resp Effort & Inspection: normal respiratory effort, able to speak in complete sentences, no audible wheezes, no cough, no respiratory distress and symmetric chest movement Cardio Jugular venous distension: no JVD Bruits: no carotid bruits Peripheral pulses: radial pulses present, posterior tibial pulses present and dorsalis pedis present GI Inspection: Yes normal to inspection and No distended Palpation (GI): Soft to palpation General: Yes no CVA tenderness Back/Spine/Pelvis Other: Patient is able to walk and stand on heels and tip toes on the right but has difficulty on the left due to left food pain and weakness. Antalgic gait with mild limping on the left. Can flex forward to 65-75 degrees and extend to 5-10 degrees before experiencing lumbar pain. Demonstrates 5/5 strength of quadriceps bilaterally as well as 5/5 right and 3/5 left flexion/dorsiflexion of bilateral feet against resistance. 2+ pedal pulses bilaterally. Straight leg rise with dorsiflexion positive on the right. +1 patellar bilaterally and +1 achilles reflexes on the right and mute on the left. Facet loading test positive bilaterally. Beny signs, Arvind?s and Stinchfield tests are negative bilaterally. Back: no CVA tenderness Skin General skin exam: no rashes or lesions noted Neuro General: No confusion Cranial nerves: Yes Equal, round and reactive pupils present and No Normal hearing present Cognition (Neuro): normal cognition Gait exam (Neuro): Antalgic gait present and No Assistive device used Motor exam (neuro): no tremor noted and Motor abnormalities not present Sensory Exam: No Sensory deficit (Neuro) Extrem General: Yes capillary refill normal, Yes no clubbing, cyanosis or edema and Yes no calf tenderness Right lower extremity: knee Details: tenderness Location: of the patella and of the medial joint line and swelling; no crepitus and no unusual warmth Left lower extremity: foot (limited ROM with plantarflexion, poor dorsiflexion) Details: normal capillary refill, tenderness (TTP joint line, dorsal aspects of toes, lateral column) Location: of the lateral foot and of the base of the 5th metatarsal and no edema; no unusual warmth, no ecchymosis and no crepitus Assessment & Plan Assessment & Plan (1) CRPS (complex regional pain syndrome type I): Code(s): G90.50 - Complex regional pain syndrome I, unspecified (2) Migraine without aura, not intractable: Code(s): G43.009 - Migraine without aura, not intractable, without status migrainosus (3) Lumbar radiculitis: Code(s): M54.16 - Radiculopathy, lumbar region (4) Lumbar spondylosis: Code(s): M47.816 - Spondylosis without myelopathy or radiculopathy, lumbar region (5) Right knee pain: Code(s): M25.561 - Pain in right knee (6) Crushing injury of ankle and foot: Code(s): S97.00XA - Crushing injury of unspecified ankle, initial encounter; S97.80XA - Crushing injury of unspecified foot, initial encounter (7) Chronic pain syndrome: Code(s): G89.4 - Chronic pain syndrome Plan Good results of [employer] SCS implant under sedation. He developed neurological symptoms postoperatively after sedation such as difficulty speaking and obfuscation. He was admitted to ER to rule out stroke. CT scan was performed and was negative for stroke. He eventually recovered completely. He has good results described as above. Activity limitation can be slowly expanded since it 6 weeks since the staple removal, 8 weeks since the surgery. Compression stockings for left lower extremity swelling versus Esequiel wrap for lower extremity swelling is recommended. If patient continues to complain vascular surgery referral will be made. Coding Level of Care Code Est Pt Level 4 (14485) Diagnoses CRPS (complex regional pain syndrome type I) G90.50 Migraine without aura, not intractable G43.009 Lumbar radiculitis M54.16 Lumbar spondylosis M47.816 Right knee pain M25.561 Crushing injury of ankle and foot S97.00XA; S97.80XA Chronic pain syndrome G89.4
[2023-03-27 10:13] VITALS: BP 138/76; PULSE 78; RESP 16; O2SAT 94; BMI 25.5
== END 2023-03-27 10:31 | disposition home or self-care (01) ==
PROVIDERS: PCP Internal Medicine; Visit Provider Anesthesiology
DX: G90.50 Complex regional pain syndrome I, unspecified (principal); G43.009 Migraine without aura, not intractable, without status migrainosus; M54.16 Radiculopathy, lumbar region; M47.816 Spondylosis without myelopathy or radiculopathy, lumbar region; M25.561 Pain in right knee; S97.0 Crushing injury of ankle; S97.80XA Crushing injury of unspecified foot, initial encounter; G89.4 Chronic pain syndrome
CPT/HCPCS: 99214

== ENCOUNTER → 2023-03-27 10:06 | Outpatient (BNVA) | payer OTHER, SELFPAY | PROVIDERS: PCP Internal Medicine; Visit Provider Anesthesiology | DX: G90.50 Complex regional pain syndrome I, unspecified (principal); G43.009 Migraine without aura, not intractable, without status migrainosus; M54.16 Radiculopathy, lumbar region; M25.561 Pain in right knee; S97.0 Crushing injury of ankle; S00-T88 Injury, poisoning and certain other consequences of external causes; G89.4 Chronic pain syndrome; Z97.8 Presence of other specified devices; X58.XXXD Exposure to other specified factors, subsequent encounter | CPT/HCPCS: 99212 ==

== ENCOUNTER 2023-07-06 10:32 | Outpatient (REF) | payer OTHER, SELFPAY ==
[2023-07-06 12:09] LABS: Alanine Aminotransferase 18 U/L (0-40); Alkaline Phosphatase 133 U/L (39-117); Aspartate Amino Transferase 17 U/L (5-37); Bilirubin Direct 0.1 mg/dL (0.0-0.5); Bilirubin Total 0.4 mg/dL (0.0-1.0); Cholesterol 153 mg/dL (<200); HDL Cholesterol 30 mg/dL (>40); LDL Cholesterol Calculated 104 mg/dL (<100); Total Protein 7.5 g/dL (6.5-8.0); Triglycerides 96 mg/dL (<150)
== END 2023-07-06 10:33 | disposition home or self-care (01) ==
LOC: HO.HHCL 10:32
PROVIDERS: Visit Provider Internal Medicine
DX: I21.21 ST elevation (STEMI) myocardial infarction involving left circumflex coronary artery (principal)
CPT/HCPCS: 36415; 80061; 80076

== ENCOUNTER 2023-10-23 09:36 | Outpatient (REF) | payer MEDICAID, SELFPAY ==
[2023-10-23 11:32] LABS: Anion Gap 10 (12-20); Blood Urea Nitrogen 8 mg/dL (9-16); Calcium 9.3 mg/dL (8.4-10.2); Carbon Dioxide 28 mmol/L (22-29); Chloride 104 mmol/L (96-108); Estimated Glomerular Filt Rate > 60; Glucose Random 88 mg/dL (60-115); Potassium 4.2 mmol/L (3.3-5.1); Sodium 138 mmol/L (135-145)
[2023-10-23 11:34] LABS: B Type Natriuretic Peptide 22 pg/mL (<100)
== END 2023-10-23 09:37 | disposition home or self-care (01) ==
LOC: HO.LAB 09:36
PROVIDERS: PCP Internal Medicine; Visit Provider Internal Medicine Cardiovascular Disease
DX: I25.10 Atherosclerotic heart disease of native coronary artery without angina pectoris (principal); I10 Essential (primary) hypertension
CPT/HCPCS: 36415; 80048; 83880

== ENCOUNTER 2023-12-04 15:41 | Outpatient (REF) | payer MEDICAID, SELFPAY ==
[2023-12-04 18:04] LABS: Alanine Aminotransferase 22 U/L (0-40); Albumin Level 4.6 g/dL (3.5-5.0); Alkaline Phosphatase 93 U/L (39-117); Anion Gap 10 (12-20); Aspartate Amino Transferase 24 U/L (5-37); Bilirubin Direct 0.2 mg/dL (0.0-0.5); Bilirubin Total 0.3 mg/dL (0.0-1.0); Blood Urea Nitrogen 11 mg/dL (9-16); Calcium 9.8 mg/dL (8.4-10.2); Carbon Dioxide 27 mmol/L (22-29); Chloride 103 mmol/L (96-108); Cholesterol 169 mg/dL (<200); Estimated Glomerular Filt Rate > 60; Glucose Random 79 mg/dL (60-115); HDL Cholesterol 29 mg/dL (>40); LDL Cholesterol Calculated 113 mg/dL (<100); Potassium 4.3 mmol/L (3.3-5.1); Sodium 136 mmol/L (135-145); Total Protein 8.2 g/dL (6.5-8.0); Triglycerides 137 mg/dL (<150)
[2023-12-04 18:05] LABS: Estimated Average Glucose 111 mg/dL; Hemoglobin A1c % 5.5 % (<6.0)
[2023-12-05 04:33] LABS: HIV AB/AG Nonreactive (Nonreactive); HIV Num 1 0.05 S/CO (0.00-0.99); ~HepC Num1 0.15 S/CO (0.00-0.79); ~Hepatitis C Antibody Nonreactive (Nonreactive)
== END 2023-12-04 15:42 | disposition home or self-care (01) ==
LOC: HO.HHCL 15:41
PROVIDERS: Visit Provider Internal Medicine
DX: I25.119 Atherosclerotic heart disease of native coronary artery with unspecified angina pectoris (principal)
CPT/HCPCS: 36415; 80048; 80061; 80076; 83036; 86803; 87389

== ENCOUNTER 2024-01-09 10:19 | Outpatient (REF) | payer MEDICAID, SELFPAY ==
[2024-01-09 11:41] LABS: MANUAL DIFF FLAG NO
[2024-01-09 11:46] LABS: MANUAL DIFF FLAG NO
[2024-01-09 11:58] LABS: Basophils Absolute Auto 0.1 X10*3/uL (0.0-0.2); Basophils Percent Auto 0.9 % (0-2); Eosinophils Absolute Auto 0.2 X10*3/uL (0.0-0.4); Eosinophils Percent Auto 2.3 % (0-4); Hematocrit 41.5 % (42.0-52.0); Hemoglobin 14.1 g/dl (14.0-18.0); Imm Gran Abs Auto 0.02 X10*3/uL (0.00-0.03); Imm Gran Pct Auto 0.3 % (0.0-0.4); Lymphocytes Absolute Auto 2.9 X10*3/uL (1.2-4.9); Mean Corpuscular Hemoglobin 30.3 pg (27.0-33.0); Mean Corpuscular Volume 89.2 fL (80.0-98.0); Mean Platelet Volume 11.6 fL (9.4-12.4); Monocytes Absolute Auto 0.4 X10*3/uL (0.1-1.2); Monocytes Percent Auto 5.7 % (2-11); Neutrophils Absolute Auto 4.1 x10*3/uL (2.0-8.3); Neutrophils Percent Auto 52.8 % (45-73); Platelet Count 191 X10*3/uL (160-400); Red Blood Count 4.65 X10*6/uL (4.60-5.80); Red Cell Distribution Width 13.6 % (11.0-16.0); White Blood Count 7.7 X10*3/uL (4.8-10.8)
[2024-01-09 11:59] LABS: Basophils Absolute Auto 0.1 X10*3/uL (0.0-0.2); Basophils Percent Auto 0.6 % (0-2); Eosinophils Absolute Auto 0.2 X10*3/uL (0.0-0.4); Eosinophils Percent Auto 2.3 % (0-4); Hematocrit 42.1 % (42.0-52.0); Hemoglobin 14.2 g/dl (14.0-18.0); Imm Gran Abs Auto 0.02 X10*3/uL (0.00-0.03); Imm Gran Pct Auto 0.3 % (0.0-0.4); Lymphocytes Absolute Auto 3.1 X10*3/uL (1.2-4.9); Lymphocytes Percent Auto 38.8 % (20-40); Mean Corpuscular HGB Conc 33.7 g/dl (31.0-36.0); Mean Corpuscular Hemoglobin 30.4 pg (27.0-33.0); Mean Corpuscular Volume 90.1 fL (80.0-98.0); Mean Platelet Volume 11.3 fL (9.4-12.4); Monocytes Absolute Auto 0.5 X10*3/uL (0.1-1.2); Monocytes Percent Auto 6.3 % (2-11); Neutrophils Absolute Auto 4.1 x10*3/uL (2.0-8.3); Neutrophils Percent Auto 51.7 % (45-73); Platelet Count 216 X10*3/uL (160-400); Red Blood Count 4.67 X10*6/uL (4.60-5.80); Red Cell Distribution Width 13.7 % (11.0-16.0); White Blood Count 7.9 X10*3/uL (4.8-10.8)
[2024-01-09 12:07] LABS: Prothrombin Time 11.9 SEC (11.1-13.3)
[2024-01-09 12:17] LABS: Anion Gap 12 (12-20); Blood Urea Nitrogen 11 mg/dL (9-16); Calcium 9.4 mg/dL (8.4-10.2); Carbon Dioxide 25 mmol/L (22-29); Chloride 103 mmol/L (96-108); Estimated Glomerular Filt Rate > 60; Glucose Random 98 mg/dL (60-115); Potassium 4.2 mmol/L (3.3-5.1); Sodium 136 mmol/L (135-145)
[2024-01-09 12:21] LABS: Alanine Aminotransferase 18 U/L (0-40); Anion Gap 12 (12-20); Aspartate Amino Transferase 19 U/L (5-37); Blood Urea Nitrogen 11 mg/dL (9-16); Calcium 9.5 mg/dL (8.4-10.2); Carbon Dioxide 27 mmol/L (22-29); Chloride 102 mmol/L (96-108); Cholesterol 157 mg/dL (<200); Estimated Glomerular Filt Rate > 60; Glucose Random 98 mg/dL (60-115); HDL Cholesterol 28 mg/dL (>40); LDL Cholesterol Calculated 105 mg/dL (<100); Potassium 4.4 mmol/L (3.3-5.1); Sodium 137 mmol/L (135-145); Triglycerides 121 mg/dL (<150)
[2024-01-09 12:32] LABS: B Type Natriuretic Peptide 14 pg/mL (<100)
== END 2024-01-09 10:20 | disposition home or self-care (01) ==
LOC: HO.HHCL 10:19
PROVIDERS: Visit Provider Internal Medicine Cardiovascular Disease
DX: R07.9 Chest pain, unspecified (principal); I25.10 Atherosclerotic heart disease of native coronary artery without angina pectoris; Z01.818 Encounter for other preprocedural examination
CPT/HCPCS: 36415; 80048; 80061; 83880; 84450; 84460; 85025; 85610

== ENCOUNTER 2024-05-10 10:17 | Outpatient (REF) | payer MEDICAID, SELFPAY ==
[2024-05-10 11:46] LABS: B Type Natriuretic Peptide 38 pg/mL (<100)
[2024-05-10 11:49] LABS: Anion Gap 10 (12-20); Blood Urea Nitrogen 11 mg/dL (9-16); Calcium 9.3 mg/dL (8.4-10.2); Carbon Dioxide 22 mmol/L (22-29); Chloride 107 mmol/L (96-108); Estimated Glomerular Filt Rate > 60; Glucose Random 100 mg/dL (60-115); Potassium 3.8 mmol/L (3.3-5.1); Sodium 135 mmol/L (135-145)
== END 2024-05-10 10:18 | disposition home or self-care (01) ==
LOC: HO.HHCL 10:17
PROVIDERS: Visit Provider Internal Medicine Cardiovascular Disease
DX: I25.10 Atherosclerotic heart disease of native coronary artery without angina pectoris (principal)
CPT/HCPCS: 36415; 80048; 83880

== ENCOUNTER 2025-01-16 11:42 | Outpatient (REF) | payer MEDICAID, SELFPAY ==
[2025-01-16 13:07] LABS: MANUAL DIFF FLAG NO
--- OUTSIDE RECORDS SUMMARY | 2025-01-16 13:14 | XMS_ITS | Clinical Summary ---
Author Organization [facility] Address [address] [place] [address] Phone Care Team Providers Care Skidway Man Name Role Phone Jackie Holley MD Primary Care Provide r Encounters Date Type Department Care Team Description 12/30/2024 1:01 PM EDT - 12/30/2024 11:59 PM EDT Hospital Encounter [facility] Neurodiagnostic [address] [place] [address] Anesthesia of skin Discharge Disposition: Home or Self Care from Last 3 Months Social History Tobacco Use Types Packs/Day Years Used Date Smoking Tobacco: Never Assessed Sex and Gender Information Value Date Recorded Sex Assigned at Not on file Legal Sex Male 11:37 PM EST Gender Identity Not on file Sexual Orientation Not on file Plan of Treatment Health Maintenance Due Date Last Done Comments Social Influencers of Health Screening 08/14/2022 COVID-19 Vaccine ( season) 2024 11/30/2023, 09/08/2021, 03/09/2021, Additional history exists Depression Screening 07/06/2024 07/06/2023 Hypertension/CHF/CAD Annual BMP Blood Test 12/30/2024 Colorectal Cancer Screening: FIT-DNA (Cologuard) 03/06/2027 03/06/2024 Cholesterol Screening (Lipid Panel) 12/03/2028 12/04/2023 DTaP,Tdap,and Td Vaccines (5 - Td or Tdap) 05/20/2030 05/20/2020, 04/11/2017, 04/02/2013, Additional history exists Pneumococcal Vaccine: 50+ Years Completed 11/30/2023 Pneumococcal Vaccine: Pediatrics (0 to 5 Years) and At-Risk Patients (6 to 64 Years) Aged Out 11/30/2023 No longer eligible based on patient's age to complete this topic HIV Screening Completed 12/04/2023 Hepatitis C Screening Completed 12/04/2023 Hepatitis B Vaccines Completed 02/13/2024, 12/08/19 Zoster Vaccines Completed 02/13/2024, 12/08/2023 Influenza Vaccine Completed 09/16/2024 HIB Vaccines Aged Out No longer eligi ble based on patient's age to complete this topic HPV Vaccines Aged Out No longer eligi ble based on patient's age to complete this topic Hepatitis A Vaccines Aged Out No long er eligible based on patient's age to complete this topic IPV Vaccines Aged Out No longer eligi ble based on patient's age to complete this topic MMR Vaccines Aged Out No longer eligi ble based on patient's age to complete this topic Meningococcal ACWY Vaccine Aged Out N o longer eligible based on patient's age to complete this topic Meningococcal B Vaccine Aged Out No l onger eligible based on patient's age to complete this topic RSV Immunization Patients Under 20 months Aged Out No longer eligible based on patient's age to complete this topic Varicella Vaccines Aged Out No longer eligible based on patient's age to complete this topic Procedures Procedure Name Priority Date/Time Associated Diagnosis Comments EMG 1 LIMB Routine 12/30/2024 1:44 PM EDT Anesthesia of skin from Last 3 Months Results * EMG one limb (12/30/2024 1:44 PM EDT) Narrative Aric Morales MD - 12/30/2024 4:28 PM EDT See report in chart review Procedure Note Aric Morales MD - 12/30/2024 See report in chart review us Jackie Wise MD NEUROLOGY ORDERABLES Final Result from Last 3 Months Insurance MEDICAID - [place] Care Teams [place]idway Man Relationship Specialty Start Date End Date Jackie Holley MD [address] [phone] PCP - General Internal Medicine 12/26/24
--- OUTSIDE RECORDS SUMMARY | 2025-01-16 13:14 | XMS_ITS | Encounter Summary ---
Author Organization [facility] Address [address] [place] [address] Care Team Providers Care Surgical Services Tech Name Role Phone JainLizbet APRN Primary Care Provider [phone] Encounter Details Date Type Department Care Team (Late st Contact Info) Description 06/03/2015 Scanned Document Cardiovascular Medicine at [address] [place] [address], [address] [place] [address] External, Provider Social History Tobacco Use Types Packs/Day Years Used Date Smoking Tobacco: Every Day Cigarettes 1 27 Alcohol Use Standard Drinks/Week Comments No 0 (1 standard drink = 0.6 oz pur e alcohol) Former Sex and Gender Information Value Date Recorded Sex Assigned at Not on file Legal Sex Male 2:02 PM EDT Gender Identity Not on file Sexual Orientation Not on file documented as of this encounter Plan of Treatment Not on file documented as of this encounter Procedures Procedure Name Priority Date/Time Associated Diagnosis Comments CARDIAC NUCLEAR MEDICINE RES ULT SCAN Routine 06/03/2015 documented in this encounter Results * Cardiac Nuclear Medicine Result Scan (06/03/2015) us Provider External CV CARDIAC REPORT (CVR) Final Result [facility] [place], [place], [facility] documented in this encounter Visit Diagnoses Not on filedocumented in this encounter Additional Health Concerns Assessment Noted Time PHQ-9 Depression Total Score: 0 05/27/20 15 11:07 AM EDT documented as of this encounter Care Teams Surgical Services Tech Relationship Specialty Start Date End Date Lizbet Jain APRN [phone] (Work) PCP - General Nurse Practitioner - Acute Care 05/04/15 documented as of this encounter
--- OUTSIDE RECORDS SUMMARY | 2025-01-16 13:14 | XMS_ITS | Encounter Summary ---
Author Organization [employer] Address [address] [facility] [address] [place] [address] Care Team Providers Care Chart Picker Name Role Phone Jackie Holley MD Primary Care Provide r Reason for Visit * Reason Onset Date Comments Med Refill 10/03/2024 Encounter Details Date Type Department Care Team ([facility] st Contact Info) Description 10/03/2024 Telephone [facility] [address] [place] [address] Jackie Holley MD [address] [place] [address] Med Refill Social History Tobacco Use Types Packs/Day Years Used Date Smoking Tobacco: Every Day Cigarettes Passive Smoke Exposure: Current Depression Answer Date Recorded Patient Health Questionnaire-9 Score 0 07/06/2023 Patient Health Questionnaire-9 Score 0 07/06/2023 Last PHQ-9: Questionnaire Data Not on file 1 Housing Stability Answer Date Recorded What is your housing situation today? I do not have housing (Staying with others, in a hotel, in a assisted, living outside on the street, on a beach, in a car, or in a park 11/22/[address] you li ve. Do you have problems with any of the following? None of the above 11/22/2023 Food Insecurity Answer Date Recorded Within the past 12 months, y ou worried that your food would run out before you got money to buy more: Never True 06/26/2023 Within the past 12 months,th e food you bought just didn't last and you didn't have enough money to get more: Never True Transportation Answer Date Recorded In the past 12 months, has l ack of transportation kept you from medical appts, meetings, work or from getting things needed for daily living? No 06/26/2023 Utilities Answer Date Recorded In the past 12 months, has t he electric, gas, oil or water company threatened to shut off services in your home? No 06/26/2023 Depression Answer Date Recorded Patient Health Questionnaire-2 Score 0 07/06/2023 Sex and Gender Information Value Date Recorded Sex Assigned at Male 07/11/2022 10:24 AM EDT Legal Sex Male 10:24 AM EDT Gender Identity Male 07/11/2022 10:24 AM EDT Sexual Orientation Choose not to disclose 2021 10:24 AM EDT documented as of this encounter Miscellaneous Notes * Telephone Encounter - Sherlyn Torres LPN - 10/03/2024 3:42 PM EST 90 day supply of Ticagrelor sent on 09/09/24 to [facility] #[id number] and gabapentin to [facility] for refill. [employer] checked on 10/03/24 last filled on 09/10/24. * Telephone Encounter - Maciej Cunha - 10/03/2024 3:38 PM EST TC from pt requesting medication refill. Medications needing refill : gabapentin (Neurontin) 100 MG capsule ticagrelor (Brilinta) 90 MG tablet To be sent to: [facility]/pharmacy #[id number] [facility] [phone] [facility] documented in this encounter Plan of Treatment Upcoming Encounters Date Type Department Care Team (Late st Contact Info) Description 02/10/2025 10:30 AM EDT Medication Management [facility] [address] [place] [address] Bebo Rowland, PharmD [address] [place], [place] [phone] documented as of this encounter Visit Diagnoses Not on filedocumented in this encounter Additional Health Concerns Assessment Noted Time PHQ-9 Depression Total Score: 0 07/06/20 23 9:50 AM EDT documented as of this encounter Care Teams Chart Picker Relationship Specialty Start Date End Date Jackie Holley MD [address] [place] [address] PCP - General Family Medicine 03/22/19 Nelda Goncalves [employer] ManagerLegal Referee 09/20/23 documented as of this encounter
--- OUTSIDE RECORDS SUMMARY | 2025-01-16 13:14 | XMS_ITS | Encounter Summary ---
Author Organization [employer] Address [address] [facility] [address] [place] [address] Care Team Providers Care Manipulator Operator Name Role Phone Jackie Holley MD Primary Care Provide r Reason for Visit * Reason Onset Date Comments Prior Authorization 08/06/2024 Med Refill 08/06/2024 Encounter Details Date Type Department Care Team (Late st Contact Info) Description 08/06/2024 Telephone [facility] [address] [place] [address] Jackie Holley MD [address] [place], [place] [phone] Prior Authorization; Med Refill Social History Tobacco Use Types [...] with others, in a hotel, in a prison, living outside on the street, on a [...] encounter Miscellaneous Notes * Telephone Encounter - Walt Skinner - 08/06/2024 1:04 PM EST TC from pt requesting medication refill. Medications needing refill : gabapentin (Neurontin) 100 MG capsule To be sent to: [facility]/pharmacy #[id number] [place] [phone] [place] [address] documented in this encounter Plan of Treatment Upcoming Encounters Date Type Department Care Team (Late st Contact Info) Description 02/10/2025 10:30 AM EDT Medication Management [facility] [address] [place] [address] Bebo Rowland, PharmD [address] [place] [address] documented as of this encounter Visit Diagnoses Not on filedocumented in this encounter Additional Health Concerns Assessment Noted Time PHQ-9 Depression Total Score: 0 07/06/20 23 9:50 AM EDT documented as of this encounter Care Teams Manipulator Operator Relationship Specialty Start Date End Date Jackie Holley MD [address] [place] [address] PCP - General Family Medicine 03/22/19 Nelda Goncalves Assistance RepresentativeCloth Cutting Inspector 09/20/23 documented as of this encounter
--- OUTSIDE RECORDS SUMMARY | 2025-01-16 13:14 | XMS_ITS | Encounter Summary ---
Author Organization [facility] Address [address] [place] [address] Care Team Providers Care Ingot Header Name Role Phone Lizbet Jain APRN Primary Care Provider [phone] Encounter Details Date Type Department Care Team (Late st Contact Info) Description 05/28/2015 Scanned Document Cardiovascular Medicine at [address], [address] [place] [address] External, Provider Social History Tobacco Use Types [...] Procedure Name Priority Date/Time Associated Diagnosis Comments LAB SCAN Routine 05/28/2015 documented in this encounter Results * Lab Scan (05/28/2015) Blood specimen (specimen) us Provider External LAB BLOOD ORDERABLES Final Res ult [facility] [place], [place], [facility] documented in this encounter Visit Diagnoses Not on filedocumented in this encounter Additional Health Concerns Assessment Noted Time PHQ-9 Depression Total Score: 0 05/27/20 15 11:07 AM EDT documented as of this encounter Care Teams Ingot Header Relationship Specialty Start Date End Date Lizbet Jain, VICTORIANO [phone] (Work) PCP - General Nurse Practitioner - Acute Care 05/04/15 documented as of this encounter
--- OUTSIDE RECORDS SUMMARY | 2025-01-16 13:14 | XMS_ITS | Clinical Summary ---
Author Organization [employer] Address [address] [facility] [address] [place] [address] Care Team Providers Care Face Cleaner Name Role Phone Jackie Holley MD Primary Care Provide r Allergies No known active allergies Medications amitriptyline (Elavil) 50 MG tablet TAKE 1 TABLET BY MOUTH EVERYDAY AT BEDTIME 02/23/20 23 Active busPIRone (Buspar) 5 MG tablet TAKE 1 TABLET BY MOUTH THREE TIMES A DAY FOR GENERAL ANXIETY DISORDER 05/14/20 23 Active hydrOXYzine pamoate (Vistaril) 25 MG capsule TAKE 1 CAPSULE BY MOUTH THREE TIMES A DAY NEEDED FOR PANIC ATTACKS 05/14/20 23 Active QUEtiapine (SEROquel) 50 MG tablet TAKE 1 TABLET BY MOUTH EVERY DAY AT BEDTIME NEEDED FOR INSOMNIA 02/23/20 23 Active nicotine (Nicoderm, Step 1) 21 MG/24HR patchIndicatio ns:Smoking APPLY 1 PATCH TOPICALLY DAILY, FOR 14 DAYS 14 patch 1 09/28/19 24 Active valsartan (Diovan) 40 MG tablet TAKE 1 TABLET BY MOUTH DAILY 90 tablet 1 02/12/20 24 Active aspirin (Aspirin Low Dose) 81 MG EC tablet TAKE 1 TABLET BY MOUTH EVERY DAY 90 tablet 1 08/06/20 24 Active metoprolol succinate XL (Toprol-XL) 50 MG 24 hr tablet TAKE 1 TABLET BY MOUTH EVERY DAY 90 tablet 1 08/06/20 24 Active famotidine (Pepcid) 20 MG tabletIndicati ons:Gastroesop hageal reflux disease, unspecified whether esophagitis present Take 1 tablet (20 mg) by mouth 2 times daily. 60 tablet 11 01/08/20 25 026 Active loratadine (Claritin) 10 MG tabletIndicati ons:Allergic rhinitis, unspecified seasonality, unspecified trigger Take 1 tablet (10 mg) by mouth Once per day. 30 tablet 11 01/08/20 25 Active fluticasone (Flonase) 50 MCG/ACT nasal sprayIndicatio ns:Allergic rhinitis, unspecified seasonality, unspecified trigger Administer 1-2 sprays into each nostril Once per day. Shake gently. Before first use, prime pump. After use, clean tip and replace cap. 16 g 2 01/08/20 25 026 Active gabapentin (Neurontin) 100 MG capsuleIndicat ions:Chest wall pain TAKE 2 CAPSULES BY MOUTH EVERY 12 HOURS 120 capsule 2 01/08/20 25 Active ticagrelor (Brilinta) 90 MG tabletIndicati ons:Coronary artery disease involving [place] coronary artery of [place] heart with angina pectoris (CMS/HCC) TAKE 1 TABLET BY MOUTH EVERY DAY 30 tablet 2 01/08/20 25 Active gabapentin (Neurontin) 100 MG capsuleIndicat ions:Chest wall pain TAKE 2 CAPSULES BY MOUTH EVERY 12 HOURS 120 capsule 12/12/19 25 025 Discontinued(Re order (will not trigger notification to Pharmacy)) ticagrelor (Brilinta) 90 MG tablet TAKE 1 TABLET BY MOUTH EVERY DAY 30 tablet 2 12/12/19 25 025 Discontinued(Re order (will not trigger notification to Pharmacy)) Active Problems Problem Noted Date Diagnosed Date GERD (gastroesophageal reflux disease) Assessment & Plan (01/07/2025 2:49 PM EDT): I advise patient to avoid NSAIDs, spicy and acid food, I advise to eat at the same time every day, I advise to elevate the head of the bed and take medications as prescribe Famotidine 20 mg twice daily prescribed Allergic rhinitis 01/07/2025 Assessment & Plan (01/07/2025 2:50 PM EDT): I will prescribe for patient loratadine 10 mg at bedtime and Flonase Carpal tunnel syndrome of left wrist 01/07/2025 Assessment & Plan (01/07/2025 2:49 PM EDT): Wrist brace prescribed Left arm numbness 09/16/2024 Assessment & Plan (09/17/2024 4:44 PM EST): I will order nerve conduction study, patient will be contacted with results Encounter for preventive health examination 11/10 Assessment & Plan (01/07/2025 2:50 PM EDT): See HPI Assessment & Plan (12/04/2023 3:20 PM EDT): See HPI S/P insertion of spinal cord stimulator 12/04/19 Assessment & Plan (03/15/2024 2:24 PM EDT): F/u with pain management Assessment & Plan (12/04/2023 3:22 PM EDT): Patient will f/u with pain management Coronary artery disease invo lving [place] coronary artery of [place] heart with angina pectoris 09/19/2023 Assessment & Plan (01/07/2025 2:49 PM EDT): Continue to follow-up with cardiology today he asked for refills for Brilinta Assessment & Plan (09/17/2024 4:44 PM EST): Continue to f/u with cardiology closely C/w same medication regimen Assessment & Plan (03/15/2024 2:24 PM EDT): Follow up with cardiology Assessment & Plan (12/04/2023 3:21 PM EDT): Continue to follow with cardiology Assessment & Plan (11/30/2023 10:43 AM EDT): C/w current medication regimen and cardiology visit it is pending a new echo Assessment & Plan (09/19/2023 12:04 PM EST): Continue to dfollow with cardiology C/w same medication regimen Anxiety with depression 09/19/2023 Assessment & Plan (12/04/2023 3:21 PM EDT): Continue to follow with therapist and psychiatrist Assessment & Plan (09/19/2023 12:03 PM EST): Counseling done C/w psychiatrist and therapist Hospital discharge follow-up 07/06/2023 Assessment & Plan (07/06/2023 4:18 PM EDT): Patient already being follow by cardiology who are adjusting the medications I will re-check LFTs to see if I can start a statin ST elevation myocardial infa rction involving left circumflex coronary artery 07/06/2023 Assessment & Plan (07/06/2023 4:16 PM EDT): continue aspirin and brillinta Continue to follow with cardiology Chest wall pain 07/06/2023 Assessment & Plan (07/06/2023 4:16 PM EDT): Improving I will renew his prescription for gabapentin Colon cancer screening 07/06/2023 Cigarette nicotine dependence without complicati on 07/06/2023 Assessment & Plan (07/06/2023 4:17 PM EDT): Patient is only smoking one cigarette a day he reports nicotine patch helps he is determinate to quit Essential hypertension 06/23/2023 Overview (12/19/2024): Eye exam +Hypertensive retinopathy 12/19/24 Assessment & Plan (01/07/2025 2:49 PM EDT): Blood pressure seems to be under control I advised to continue with same medication and low-sodium diet Assessment & Plan (09/17/2024 4:44 PM EST): I advised: - Aerobic exercise to reduce BP. Initial goal of 30 min walk 3-5x/week. Increase as tolerated. - low-sodium diet (goal: <2g/day) and heart healthy diet such as DASH to reduce BP and prevent ASCVD. - Home BP monitoring 1-2 x day with goal of <140/90. - Seek immediate medical attention for chest pain, palpitations, SOB, syncope, or sudden changes in mental status. - Do not change or discontinue current prescriptions without first consulting health care provider Assessment & Plan (03/15/2024 2:24 PM EDT): - Aerobic exercise to reduce BP. Initial goal of 30 min walk 3-5x/week. Increase as tolerated. - low-sodium diet (goal: <2g/day) and heart healthy diet such as DASH to reduce BP and prevent ASCVD. - Home BP monitoring 1-2 x day with goal of <140/90. - Seek immediate medical attention for chest pain, palpitations, SOB, syncope, or sudden changes in mental status. - Do not change or discontinue current prescriptions without first consulting health care provider Assessment & Plan (12/04/2023 3:20 PM EDT): At goal it was advise - Aerobic exercise to reduce BP. Initial goal of 30 min walk 3-5x/week. Increase as tolerated. - low-sodium diet (goal: <2g/day) and heart healthy diet such as DASH to reduce BP and prevent ASCVD. - Home BP monitoring 1-2 x day with goal of <140/90. - Seek immediate medical attention for chest pain, palpitations, SOB, syncope, or sudden changes in mental status. - Do not change or discontinue current prescriptions without first consulting health care provider Assessment & Plan (11/30/2023 10:42 AM EDT): -blood pressure at goal, patient is also being follow by cardiology - Aerobic exercise to reduce BP. Initial goal of 30 min walk 3-5x/week. Increase as tolerated. - low-sodium diet (goal: <2g/day) and heart healthy diet such as DASH to reduce BP and prevent ASCVD. - Home BP monitoring 1-2 x day with goal of <140/90. - Seek immediate medical attention for chest pain, palpitations, SOB, syncope, or sudden changes in mental status. - Do not change or discontinue current prescriptions without first consulting health care provider Assessment & Plan (09/19/2023 12:02 PM EST): -Blood pressure is at goal, f/u with cardiology to let them know he discontinue entresto and re-initiate valsartan because he was feeling his heart raising - Aerobic exercise to reduce BP. Initial goal of 30 min walk 3-5x/week. Increase as tolerated. - low-sodium diet (goal: <2g/day) and heart healthy diet such as DASH to reduce BP and prevent ASCVD. - Home BP monitoring 1-2 x day with goal of <140/90. - Seek immediate medical attention for chest pain, palpitations, SOB, syncope, or sudden changes in mental status. - Do not change or discontinue current prescriptions without first consulting health care provider Chronic low back pain 06/23/2023 06/23/2023 Disturbance of conduct 01/08/2016 Overview (06/23/2023): Overview Note: Unspecified Disruptive, Impuls #[id number]# EXT_ID: [id number] Depression, major, recurrent, moderate 6 06/23/2023 Overview (06/23/2023): Overview Note: Depression, major, recurrent, #[id number]# EXT_ID: [id number] Assessment & Plan (09/17/2024 4:45 PM EST): Continue to follow with therapist and psychiatrist C/w same medications Assessment & Plan (11/30/2023 10:44 AM EDT): Continue to follow with counselor and psychiatrist and current medication Resolved Problems Problem Noted Date Diagnosed Date Resolved Date Colon cancer 07/06/2023 07/06/2023 Encounters Date Type Department Care Team Description 01/08/2025 Telephone [facility] [address] [place] [phone] Jackie Holley MD 01/07/2025 2:00 PM EDT Office Visit [facility] [address] [place] [phone] Jackie Holley MD Cigarette nicotine dependence without complication (Primary Dx); Gastroesophageal reflux disease, unspecified whether esophagitis present; Allergic rhinitis, unspecified seasonality, unspecified trigger; Essential hypertension; Chest wall pain; Coronary artery disease involving [place] coronary artery of [place] heart with angina pectoris (CMS/HCC); Carpal tunnel syndrome of left wrist; Encounter for preventive health examination 01/07/2025 Travel 01/01/2025 Telephone [facility] [address] [place] [phone] Jackie Holley MD Prior Authorization 12/27/2024 Patient Outreach [facility] [address] [place] [address] Jackie Holley MD Pre-visit Planning (SDOH screening negative and tobacco screening positive) 12/11/2024 Refill [facility] [address] [place] [address] Jackie Holley MD Chest wall pain 11/22/2024 Population Health Risk Score [facility] () Department [address] [place] [phone] Provider, Population Health Generic 11/15/2024 Refill [facility] [address] [place] [address] Jackie Holley MD Chest wall pain from Last 3 Months Immunizations Name Administration Dates Next Due HepB-CpG 02/13/2024,12/08/2023 Influenza, seasonal, injecta ble, preservative free 09/16/2024 Pfizer Covid-19 Vaccine 12+ 11/30/2023 Pneumococcal Conjugate PCV 20 11/30/2023 Tdap 05/20/2020, 7,04/02/2013,2010 Zoster, Recombinant 02/13/2024,12/08/2023 Social History Tobacco Use Types Packs/Day Years Used Date Smoking Tobacco: Every Day Cigarettes Passive Smoke Exposure: Current Tobacco Cessation:Ready to Q uit: Not Asked; Counseling Given: Not Answered Depression Answer Date Recorded Patient Health Questionnaire-9 Score 17 01/07/2025 Patient Health Questionnaire-9 Score 17 01/07/2025 Last PHQ-9: Questionnaire Data Not on file 0 01/07/2025 Housing Stability Answer Date Recorded What is your housing situation today? I have elis oneal 12/27/[address] you li ve. Do you have problems with any of the following? None of the above 12/27/2024 Food Insecurity Answer Date Recorded Within the [...] Answer Date Recorded Patient Health Questionnaire-2 Score 4 01/07/2025 Internet Access Answer Date Recorded Internet Access Q1 Yes 12/27/2024 Internet Access Q2 Not on file 12/27/2024 Sex and Gender Information Value Date Recorded Sex Assigned at Male 07/11/2022 10:24 AM EDT Legal Sex Male 10:24 AM EDT Gender Identity Male 07/11/2022 10:24 AM EDT Sexual Orientation Choose not to disclose 2021 10:24 AM EDT Last Filed Vital Signs Vital Sign Reading Time Taken Comments Blood Pressure 113/66 01/07/2025 1:59 PM EDT Pulse 58 01/07/2025 1:59 PM EDT Temperature 36.1 ??C (97 ??F) 01/07/2025 1:59 PM EDT Respiratory Rate 20 01/07/2025 1:59 PM EDT Oxygen Saturation 98% 01/07/2025 1:59 PM EDT Inhaled Oxygen Concentration - - Weight 78.7 kg (173 lb 8 oz) 01/07/2025 1:59 PM EDT Height 169.1 cm (5' 6.59 ) 01/07/2025 1:59 PM ED T Body Mass Index 27.51 01/07/2025 1:59 PM EDT Plan of Treatment Upcoming Encounters Date Type Department Care Team ([facility] st Contact Info) Description 02/10/2025 10:30 AM EDT Medication Management [facility] [address] [place] [address] Bebo Rowland, PharmD [address] [place] [address] Health Maintenance Due Date Last Done Comments CT Colonography 1973 Colonoscopy 1973 FIT 1973 FOBT 1973 Sigmoidoscopy 1973 Family Planning (PISQ) 1988 COVID-19 Vaccine ( season) 2024 11/30/2023, 09/08/2021, 03/09/2021, Additional history exists SDOH Screening 12/27/2025 12/27/2024 Alcohol/Substance Use Screening 01/07/2026 01/07/2025 Depression Screening 01/07/2026 01/07/2025, 01/08/20 Tobacco Screening 01/07/2026 01/07/2025 Colorectal Cancer Screening 03/06/2027 FIT DNA/Cologuard 03/06/2027 03/06/2024 Lipid Panel 12/03/2028 12/04/2023, 06/12, 12/10/2020 DTaP/Tdap/Td Vaccines (5 - Td or Tdap) 05/20/2030 05/20/2020, 04/11/2017, 04/02/2013, Additional history exists RSV Patients and Patients Aged 60 years or older (1 - 1-dose 75+ series) 2048 Pneumococcal Vaccine: 50+ Years Completed 11/30/2023 HIV Screening Completed 12/04/2023, 12/10/2020 Hepatitis C Screening Completed 12/04/2023 Hepatitis B [...] patient's age to complete this topic Meningococcal Vaccine Aged Out No salvatore caro eligible based on patient's age to complete this topic RSV under 20 months Aged Out No longe r eligible based on patient's age to complete this topic Rotavirus Vaccines Aged Out No longer eligible based on patient's age to complete this topic Procedures Procedure Name Priority Date/Time Associated Diagnosis Comments LAB COLOGUARD?? COLON CANCER SCREEN Routine 03/06/2024 6:30 PM EDT Colon cancer screening HEPATITIS C AB W/REFL TO HCV RNA, QN, PCR Routine 12/04/2023 3:42 PM EDT Coronary artery disease involving [place] coronary artery of [place] heart with angina pectoris (CMS/HCC) HIV 1/2 ANTIGEN/ANTIBODY, FOURTH GENERATION W/RFL Routine 12/04/2023 3:42 PM EDT Coronary artery disease involving [place] coronary artery of [place] heart with angina pectoris (CMS/HCC) LIPID PANEL, STANDARD Routine 12/04/2023 3:42 PM EDT Coronary artery disease involving [place] coronary artery of [place] heart with angina pectoris (CMS/HCC) from Last 3 Months or Most Recently Relevant to Health Maintenance Results * Cologuard?? colon cancer screening (03/06/2024 6:30 PM EDT) Cologuard Result Negative Negative 03/17/20 24 5:15 PM EDT [facility] (CLIA #:[id number]) Comment: NEGATIVE TEST RESULT. A negative Cologuard result indicates a low likelihood that a colorectal cancer (CRC) or advanced adenoma (adenomatous polyps with more advanced pre-malignant features) ??is present. The chance that a person with a negative Cologuard test has a colorectal cancer is less than 1 in 1500 (negative predictive value >99.9%) or has an ??advanced adenoma is less than ??5.3% (negative predictive value 94.7%). These data are based on a prospective cross-sectional study of 10,000 individuals at average risk for colorectal cancer who were screened with both Cologuard and colonoscopy. (Leonor Stokes al, N Engl J Med 2014;370(14):1286- 1297) The normal value (reference range) for this assay is negative. COLOGUARD RE-SCREENING RECOMMENDATION: Periodic colorectal cancer screening is an important part of preventive healthcare for asymptomatic individuals at average risk for colorectal cancer. ??Following a negative Cologuard result, the [employer] Society and U.S. Multi-Society Task Force screening guidelines recommend a Cologuard re-screening interval of 3 years. References: [employer] Guideline for Colorectal Cancer Screening: https://www.cancer.org/cancer/wzyvw-uzhklw-ldqape/sznvmykrz-nlpkuvahg-hymswdk/ac s-rec ommendations.html.; Gaudencio DK, Osman BARRERA, Kali ParisK, Colorectal Cancer Screening: Recommendations for Physicians and Patients from the U.S. Multi-Society Task Force on Colorectal Cancer Screening , Am J Gastroenterology 2017; 112:5174-5982. TEST DESCRIPTION: Composite algorithmic analysis of stool DNA-biomarkers with hemoglobin immunoassay. ?? Quantitative values of individual biomarkers are not reportable and are not associated with individual biomarker result reference ranges. Cologuard is intended for colorectal cancer screening of adults of either sex, 45 years or older, who are at average-risk for colorectal cancer (CRC). Cologuard has been approved for use by the U.S. FDA. The performance of Cologuard was established in a cross sectional study of average-risk adults aged 50-84. Cologuard performance in patients ages 45 to 49 years was estimated by sub-group analysis of near-age groups. Colonoscopies performed for a positive result may find as the most clinically significant lesion: colorectal cancer [4.0%], advanced adenoma (including sessile serrated polyps greater than or equal to 1cm diameter) [20%] or non- advanced adenoma [31%]; or no colorectal neoplasia [45%]. These estimates are derived from a prospective cross-sectional screening study of 10,000 individuals at average risk for colorectal cancer who were screened with both Cologuard and colonoscopy. (Leonor Stokes al, N Engl J Med 2014;370(14):4455-2118.) Cologuard may produce a false negative or false positive result (no colorectal cancer or precancerous polyp present at colonoscopy follow up). A negative Cologuard test result does not guarantee the absence of CRC or advanced adenoma (pre-cancer). The current Cologuard screening interval is every 3 years. ([employer] and U.S. Multi-Society Task Force). Cologuard performance data in a 10,000 patient pivotal study using colonoscopy as the reference method can be accessed at the following location: www.[employer].com/results. Additional description of the Cologuard test process, warnings and precautions can be found at www.cologuard.com. Stool specimen (specimen) 03/06/2024 6:30 PM EDT 03/08/2024 10:54 AM EDT Jackie Wise MD LAB MOLECULAR DIAGNOS TICS ORDERABLES Final Result Performing Organization Address City/[facility]/ZIP Co de Phone Number [facility] (CLIA #:[id number]) [place] [address], * Hepatitis C Antibody with Reflex to HCV, RNA, Quantitative, Real-Time PCR (12/04/2023 3:42 PM EDT) Hepatitis C Antibody Nonreactive Nonreactive [facility] Comment:Antibodies to HCV no t detected; does not exclude early acuteHCV infection. Blood Venous blood specimen / Unknown 12/04/2023 3:42 PM EDT 12/04/2023 5:34 PM EDT Jackie Wise MD LAB BLOOD ORDERABLES Final Result Performing Organization Address City/[facility]/ZIP Co de Phone Number [facility] [address] [place] [phone] [phone] * HIV-1/2 Antigen and Antibodies, Fourth Generation, with Reflexes (12/04/2023 3:42 PM EDT) HIV AB/AG Nonreactive Nonreactive [facility] Comment:HIV-1 p24 Ag and/or HIV-1/HIV-2 Ab not detected.A test result that is nonreactive does not exclude thepossibility of exposure to or infection with HIV-1 and/orHIV-2. Nonreactive results in this assay for individualswith prior exposure to HIV-1 and/or HIV-2 may be due toantigen and antibody levels that are below the limit ofdetection of this assay.The [employer] HIV Ag/Ab Combo assay result andsupplemental assay results should be interpreted inconjunction with the patient's clinical presentation,history and other laboratory results. If the results areinconsistent with clinical evidence, additional testing issuggested to confirm the result. Blood Venous blood specimen / Unknown 12/04/2023 3:42 PM EDT 12/04/2023 5:34 PM EDT us Jackie Wise MD LAB BLOOD ORDERABLES Final Result [facility] [address] [place] [phone] * (ABNORMAL) Lipid Panel, Standard (12/04/2023 3:42 PM EDT) Triglycerides 137 <150 mg/dL [facility] Comment:Desirable Triglyceri de: less than 150 mg/dLBorderline High Triglyceride 150-199 mg/dLHigh Triglyceride: 200-499 mg/dLVery High Triglyceride: greater than or equal to 5OO mg/dL Cholesterol 169 <200 mg/dL [facility] Comment:Desirable Cholestero l: less than 200 mg/dLBorderline High Cholesterol: 200-239 mg/dLHigh Cholesterol: greater than 239 mg/dL LDL Cholesterol Calculated 113(H) <100 mg/dL [facility] Comment:Desirable LDL: less than 100 mg/dLNear Optimal/Above Optimal LDL: 110- 129 mg/dLBorderline High LDL: 130-159 mg/dLHigh LDL: 160-189 mg/dLVery High LDL: greater than or equal to 190 mg/dL HDL Cholesterol 29(L) >40 mg/dL [facility] Comment:Desirable HDL: great er than 40 mg/dL Note: This HDL assay may give artificially low results in patients with liver disease. Blood Venous blood specimen / Unknown 12/04/2023 3:42 PM EDT 12/04/2023 5:34 PM EDT us Jackie Wise MD LAB BLOOD ORDERABLES Final Result [facility] [address] [place] [phone] from Last 3 Months or Most Recently Relevant to Health Maintenance Insurance [id number] HSN PARTIAL Care Teams Face Cleaner Relationship Specialty Start Date End Date Jackie Holley MD [address] [place] [phone] PCP - General Family Medicine 03/22/19 Nelda Goncalves Systems AdminInspector Wire Products 09/20/23
--- OUTSIDE RECORDS SUMMARY | 2025-01-16 13:14 | XMS_ITS | Encounter Summary ---
Author Organization [employer] Address [address] [facility] [address] [place] [address] Care Team Providers Care Construction Materials Tester Name Role Phone Jackie Holley MD Primary Care Provide r Reason for Visit * Reason Comments Med Refill Encounter Details Date Type Department Care Team (Late st Contact Info) Description 02/16/2024 Refill [facility] [address] [place], [place] [phone] Jackie Holley MD [address] [place], [place] [phone] Major depressive disorder, recurrent, moderate (CMS/HCC) Social History Tobacco Use Types Packs/Day Years [...] with others, in a hotel, in a snf, living outside on the street, on a [...] AM EDT documented as of this encounter Plan of Treatment Upcoming Encounters Date Type Department Care Team (Late st Contact Info) Description 02/10/2025 10:30 AM EDT Medication Management [facility] [address] [place] [address] Bebo Rowland, PharmD [address] [place] [address] documented as of this encounter Visit Diagnoses Diagnosis Major depressive disorder, recurrent, moderate (CMS/HCC) Major depressive disorder, recurrent episode, moderate documented in this encounter Additional Health Concerns Assessment Noted Time PHQ-9 Depression Total Score: 0 07/06/20 23 9:50 AM EDT documented as of this encounter Care Teams Construction Materials Tester Relationship Specialty Start Date End Date Jackie Holley MD [address] [place] [address] PCP - General Family Medicine 03/22/19 Nelda Goncalves Defective Cigarette SlitterWorm Picker 09/20/23 documented as of this encounter
--- OUTSIDE RECORDS SUMMARY | 2025-01-16 13:14 | XMS_ITS | Clinical Summary ---
Author Organization [address] Address [address] [place] [address] Care Team Providers Care Orthotic Finish Grinding Technician Name Role Phone Lizbet Jain Rl PASTRANA Primary Care Provider [phone] Allergies No known active allergies Medications verapamil (VERELAN PM) 120 MG 24 hr capsule Take 120 mg by mouth nightly. Active omeprazole (PRILOSEC) 40 MG capsule Take 40 mg by mouth daily. Active Active Problems Problem Noted Date Diagnosed Date Chest pain 05/27/2015 Overview (06/12/2017): This Dx was updated with the IMO Load 06/11/2017 Gastritis 05/27/2015 Essential hypertension 05/27/2015 Overview (06/12/2017): This Dx was updated with the IMO Load 06/11/2017 Family History Medical History Relation Name Comments Heart disease Brother Heart disease Mother Heart disease Sister Relation Name Status Comments Brother Mother Sister Social History Tobacco Use Types Packs/Day Years Used Date Smoking Tobacco: Every Day Cigarettes 1 27 Alcohol Use Standard Drinks/Week Comments No 0 (1 standard drink = 0.6 oz pur e alcohol) Former Sex and Gender Information Value Date Recorded Sex Assigned at Not on file Legal Sex Male 2:02 PM EDT Gender Identity Not on file Sexual Orientation Not on file Last Filed Vital Signs Vital Sign Reading Time Taken Comments Blood Pressure 96/62 05/27/2015 11:09 AM EDT Pulse 64 05/27/2015 11:09 AM EDT Temperature - - Respiratory Rate - - Oxygen Saturation 98% 05/27/2015 11:09 AM EDT Inhaled Oxygen Concentration - - Weight 68.5 kg (151 lb) 05/27/2015 11:09 AM EDT Height 167.6 cm (5' 6 ) 05/27/2015 11:09 AM EDT Body Mass Index 24.37 05/27/2015 11:09 AM EDT Plan of Treatment Health Maintenance Due Date Last Done Comments HIV screening 1986 Hepatitis C screening 1991 Lipid disorder screening 2013 Colon cancer screening, Colonoscopy 2018 Diabetes screening 2018 Pneumococcal Vaccine (50+ years) (1 of 1 - PCV) 2023 Shingles vaccine (Shingrix) (1 of 2 - Shingrix (RZV) 2 Dose Standard Series) 2023 Covid-19 vaccine series (1 - 2023- season) 2024 Influenza vaccine 05/12/2025 Tetanus adult (Td q 10,TDAP once) 04/11/2027 04/11/2017, 04/02/2013 RSV Immunization (1 - 1-dose 75+ series) 2048 Meningococcal Vaccine Aged Out No salvatore caro eligible based on patient's age to complete this topic Pneumococcal Vaccine (2 - 49 years) Aged Out No longer eligible b ased on patient's age to complete this topic [place] Care Teams Orthotic Finish Grinding Technician Relationship Specialty Start Date End Date Lizbet Jain APRN [phone] (Work) PCP - General Nurse Practitioner - Acute Care 05/04/15
--- OUTSIDE RECORDS SUMMARY | 2025-01-16 13:14 | XMS_ITS | Encounter Summary ---
Author Organization [facility] Address [address] [place] [address] Care Team Providers Care Staple Shear Operator Name Role Phone Lizbet Jain APRN Primary Care Provider [phone] Encounter Details Date Type Department Care Team (Late st Contact Info) Description 05/11/2015 Scanned Document Cardiovascular Medicine at [address] [facility] [address] [facility], [address] [place] [address] External, Provider Social History Tobacco Use Types Packs/Day Years Used Date Smoking Tobacco: Never Assessed Sex and Gender Information Value Date Recorded Sex Assigned at Not on file Legal Sex Male 2:02 PM EDT Gender Identity Not on file Sexual Orientation Not on file documented as of this encounter Plan of Treatment Not on file documented as of this encounter Visit Diagnoses Not on filedocumented in this encounter Care Teams Staple Shear Operator Relationship Specialty Start Date End Date Lizbet Jain APRN [phone] (Work) PCP - General Nurse Practitioner - Acute Care 05/04/15 documented as of this encounter
--- OUTSIDE RECORDS SUMMARY | 2025-01-16 13:14 | XMS_ITS | Clinical Summary ---
Author Organization [facility] Address [address] [place] [address] Care Team Providers Care Regulatory Affairs Specialist Name Role Phone Unavailable Primary Care Provider Unavailabl e Source Comments PLEASE NOTE, if this patient is a minor, it may be UNLAWFUL to discuss sensitive information that is contained in these records (such as FAMILY PLANNING, MENTAL HEALTH or SUBSTANCE ABUSE) with the minor patient's parent or other person without the patient's specific authorization.[facility] Allergies No known active allergies Active Problems Problem Noted Date Diagnosed Date Unspecified Depressive Disorder 05/05/2016 Overview (11/07/2019): Overview Note: Unspecified Depressive Disorde #[id number]# EXT_ID: [id number] Unspecified Disruptive, Impu lse-Control and Conduct Disorder 01/08/2016 Overview (11/07/2019): Overview Note: Unspecified Disruptive, Impuls #[id number]# EXT_ID: [id number] Depression, major, recurrent, moderate 6 Overview (11/07/2019): Overview Note: Depression, major, recurrent, #[id number]# EXT_ID: [id number] Social History Tobacco Use Types Packs/Day Years Used Date Smoking Tobacco: Every Day Smokeless Tobacco: Never Social Connections Answer Date Recorded Social Connections and Isolation 0 11/02/2019 Financial Resource Strain Answer Date R ecorded Financial Resource Strain 0 2019 Stress Answer Date Recorded Stress 0 11/02/2019 Physical Activity Answer Date Recorded Physical Activity 0 11/02/2019 Food Insecurity Answer Date Recorded Food 0 11/02/2019 Transportation Needs Answer Date Record ed Transportation 0 11/02/2019 Housing Stability Answer Date Recorded Housing 0 11/02/2019 Safety and Environment Answer Date Efrain rded Safety 0 11/02/2019 Utilities Answer Date Recorded Utilities 0 11/02/2019 Employment Answer Date Recorded Employment 0 11/02/2019 Sex and Gender Information Value Date Recorded Sex Assigned at Not on file Legal Sex Male 10:54 PM PST Gender Identity Not on file Sexual Orientation Not on file Last Filed Vital Signs Vital Sign Reading Time Taken Comments Blood Pressure 120/76 09/27/2018 11:12 AM EST Pulse 63 09/27/2018 11:12 AM EST Temperature 36.1 ??C (96.66122611431108 ??F) 09/27/2018 11:12 AM EST Respiratory Rate - - Oxygen Saturation 98% 09/27/2018 11: 12 AM EST Inhaled Oxygen Concentration - - Weight 68.7 kg (151 lb 8 oz) 09/27/2018 11:12 AM EST Height 172.7 cm (5' 8 ) 09/27/2018 11:1 2 AM EST Body Mass Index 23.04 09/27/2018 11:12 AM EST Plan of Treatment Not on file
--- OUTSIDE RECORDS SUMMARY | 2025-01-16 13:14 | XMS_ITS | Encounter Summary ---
Author Organization [facility] Address [address] [place] [address] Care Team Providers Care Licensed Vocational Nurse Name Role Phone Lizbet Jain APRN Primary Care Provider [phone] Encounter Details Date Type Department Care Team (Late st Contact Info) Description 05/11/2015 Scanned Document Cardiovascular Medicine at [address] [facility] [address] [facility], [address] [place] [address] Lizbet Jain, WHEEL WORKER [address] [place] [address] [phone] (Work) Social History Tobacco Use Types Packs/Day Years [...] on filedocumented in this encounter Care Teams Licensed Vocational Nurse Relationship Specialty Start Date End Date Lizbet Jain APRN [phone] (Work) PCP - General Nurse Practitioner - Acute Care 05/04/15 documented as of this encounter
--- OUTSIDE RECORDS SUMMARY | 2025-01-16 13:14 | XMS_ITS | Encounter Summary ---
Author Organization [employer] Address [address] [facility] [address] [place] [address] Care Team Providers Care Case Making Machine Operator Name Role Phone Jackie Holley MD Primary Care Provide r Reason for Visit * Reason Comments Med Refill Encounter Details Date Type Department Care Team (Late st Contact Info) Description 02/11/2024 Refill [facility] [address] [place], [place] [phone] Jackie Holley MD [address] [place] [address] Social History Tobacco Use Types Packs/Day Years [...] with others, in a hotel, in a halfway, living outside on the street, on a [...] Description 02/10/2025 10:30 AM EDT Medication Management [facility] [address] [place] [address] Bebo Rowland, PharmD [address] [place] [address] documented as of this encounter Visit Diagnoses Not on filedocumented in this encounter Additional Health Concerns Assessment Noted Time PHQ-9 Depression Total Score: 0 07/06/20 23 9:50 AM EDT documented as of this encounter Care Teams Case Making Machine Operator Relationship Specialty Start Date End Date Jackie Holley MD [address] [place] [address] PCP - General Family Medicine 03/22/19 Nelda Goncalves Financial Market DealerBond Broker 09/20/23 documented as of this encounter
--- OUTSIDE RECORDS SUMMARY | 2025-01-16 13:14 | XMS_ITS | Clinical Summary ---
Author Organization [facility] Address [address] [place] [address] Care Team Providers Care Hotel Maintenance Technician Name Role Phone [facility] Care Provider Allergies No known active allergies Medications No known medications Immunizations Immunization Administration Dates Next Due Tdap 04/11/2017,04/02/2013 Family History Medical History Relation Name Comments No Known Problems Brother No Known Problems Cousin No Known Problems Father No Known Problems Maternal Aunt No Known Problems Maternal Grandfather No Known Problems Maternal Grandmother No Known Problems Maternal Uncle No Known Problems Mother No Known Problems Paternal Aunt No Known Problems Paternal Grandfather No Known Problems Paternal Grandmother No Known Problems Paternal Uncle No Known Problems Sister ADD / ADHD Neg Hx Alcohol abuse Neg Hx Anxiety disorder Neg Hx Bipolar disorder Neg Hx Dementia Neg Hx Depression Neg Hx Drug abuse Neg Hx OCD Neg Hx Paranoid behavior Neg Hx Schizophrenia Neg Hx Seizures Neg Hx Self-injurious behavior Neg Hx Suicide attempts Neg Hx Suicide completion Neg Hx Relation Name Status Comments Brother Cousin Father Maternal Aunt Maternal Grandfather Maternal Grandmother Maternal Uncle Mother Paternal Aunt Paternal Grandfather Paternal Grandmother Paternal Uncle Sister Social History Tobacco Use Types Packs/Day Years Used Date Smoking Tobacco: Every Day Cigarettes Smokeless Tobacco: Never Alcohol Use Standard Drinks/Week Comments No 0 (1 standard drink = 0.6 oz pur e alcohol) AUDIT-C Answer Date Recorded Frequency of Alcohol Consumption Never 07/05/2018 Average Number of Drinks Not on file 018 Frequency of Binge Drinking Not on file 06/12 Sex and Gender Information Value Date Recorded Sex Assigned at Not on file Legal Sex Male 1:02 PM EDT Gender Identity Not on file Sexual Orientation Not on file Last Filed Vital Signs Vital Sign Reading Time Taken Comments Blood Pressure 99/67 09/21/2018 3:05 PM EST Pulse 62 09/21/2018 3:05 PM EST Temperature 36.8 ??C (98.2 ??F) 09/21/2018 3:05 PM ES T Respiratory Rate 16 09/21/2018 3:05 PM EST Oxygen Saturation 99% 09/21/2018 3:05 PM EST Inhaled Oxygen Concentration - - Weight 72 kg (158 lb 11.7 oz) 07/13/2018 3:52 AM EDT Height 172.7 cm (5' 8 ) 07/13/2018 3:52 AM EDT Body Mass Index 24.14 07/13/2018 3:52 AM EDT Plan of Treatment Health Maintenance Due Date Last Done Comments Hepatitis C Virus Screening 1973 HIV Screening 1986 Hepatitis B Vaccines (1 of 3 - 19+ 3-dose series) 1992 Colonoscopy 2018 Pneumococcal Vaccines 50+ (1 of 1 - PCV) 2023 Zoster (Shingles) Vaccine (1 of 2) 2023 COVID-19 Vaccine (1 - 2023- season) 2024 Influenza Vaccine 04/11/2025 DTaP/Tdap/Td Vaccines (3 - Td or Tdap) 04/11/2027, 04/02/2013 [place] [facility] [place] [employer] Care Teams Hotel Maintenance Technician Relationship Specialty Start Date End Date [facility] [address] [place] [address] PCP - General Internal Medicine 09/27/18
--- OUTSIDE RECORDS SUMMARY | 2025-01-16 13:14 | XMS_ITS | Encounter Summary ---
Author Organization [employer] Address [address] [facility] 7 [place] [address] Care Team Providers Care Bending Machine Set Up Operator Name Role Phone Jackie Holley MD Primary Care Provide r Reason for Visit * Reason Comments Med Refill Encounter Details Date Type Department Care Team (Late st Contact Info) Description 04/12/[address] [facility] [address] [place], [place] [phone] Jackie Holley MD [address] [place] [address] Chest wall pain Social History Tobacco Use Types Packs/Day Years [...] with others, in a hotel, in a detention, living outside on the street, on a [...] Description 02/10/2025 10:30 AM EDT Medication Management [facility] [address] [place] [address] Bebo Rowland, PharmD [address] [place] [address] documented as of this encounter Visit Diagnoses Diagnosis Chest wall pain Painful respiration documented in this encounter Additional Health Concerns Assessment Noted Time PHQ-9 Depression Total Score: 0 07/06/20 23 9:50 AM EDT documented as of this encounter Care Teams Bending Machine Set Up Operator Relationship Specialty Start Date End Date Jackie Holley MD [address] [place] [address] PCP - General Family Medicine 03/22/19 Nelda Goncalves Fork RepairerApparatus Operator 09/20/23 documented as of this encounter
--- OUTSIDE RECORDS SUMMARY | 2025-01-16 13:14 | XMS_ITS | Encounter Summary ---
Author Organization [facility] Address [address] [place] [address] Care Team Providers Care Commercial Credit Reviewer Name Role Phone Pcp, No Primary Care Provider Unavailabl e Pcp, No Primary Care Provider Unavailabl e Services-[facility] Care Provider Encounter Details Date Type Department Care Team (Late st Contact Info) Description 04/11/2017 Scanned Document [address] [place] [address] [phone] Provider, Generic Social History Tobacco Use Types Packs/Day Years [...] on filedocumented in this encounter Care Teams Commercial Credit Reviewer Relationship Specialty Start Date End Date Pcp, No PCP - General 07/05/18 09/20/18 Pcp, No PCP - General 09/21/18 09/26/18 Services-[facility] [address] [place] [id number] PCP - General Internal Medicine 09/27/18 documented as of this encounter
[2025-01-16 13:21] LABS: Basophils Absolute Auto 0.1 X10*3/uL (0.0-0.2); Basophils Percent Auto 0.5 % (0-2); Eosinophils Absolute Auto 0.1 X10*3/uL (0.0-0.4); Eosinophils Percent Auto 1.5 % (0-4); Hemoglobin 13.8 g/dl (14.0-18.0); Imm Gran Abs Auto 0.04 X10*3/uL (0.00-0.03); Imm Gran Pct Auto 0.4 % (0.0-0.4); Lymphocytes Absolute Auto 2.2 X10*3/uL (1.2-4.9); Lymphocytes Percent Auto 23.2 % (20-40); Mean Corpuscular HGB Conc 34.5 g/dl (31.0-36.0); Mean Corpuscular Hemoglobin 30.4 pg (27.0-33.0); Mean Corpuscular Volume 88.1 fL (80.0-98.0); Mean Platelet Volume 11.3 fL (9.4-12.4); Monocytes Absolute Auto 0.6 X10*3/uL (0.1-1.2); Monocytes Percent Auto 6.5 % (2-11); Neutrophils Absolute Auto 6.5 x10*3/uL (2.0-8.3); Neutrophils Percent Auto 67.9 % (45-73); Platelet Count 243 X10*3/uL (160-400); Red Blood Count 4.54 X10*6/uL (4.60-5.80); Red Cell Distribution Width 13.8 % (11.0-16.0); White Blood Count 9.5 X10*3/uL (4.8-10.8)
[2025-01-16 13:31] LABS: Estimated Average Glucose 114 mg/dL; Hemoglobin A1C 133.8687 umol/L; Hemoglobin A1c % 5.6 % (<6.0); Total Hemoglobin (HGBA1C) 3589.8786 umol/L
[2025-01-16 13:40] LABS: Alanine Aminotransferase 17 U/L (0-40); Albumin Level 4.5 g/dL (3.5-5.0); Alkaline Phosphatase 89 U/L (39-117); Anion Gap 13 (12-20); Aspartate Amino Transferase 28 U/L (5-37); Bilirubin Total 0.6 mg/dL (0.0-1.0); Blood Urea Nitrogen 11 mg/dL (9-16); Calcium 9.7 mg/dL (8.4-10.2); Carbon Dioxide 24 mmol/L (22-29); Chloride 103 mmol/L (96-108); Cholesterol 156 mg/dL (<200); Estimated Glomerular Filt Rate > 60; Glucose Random 94 mg/dL (60-115); HDL Cholesterol 29 mg/dL (>40); LDL Cholesterol Calculated 107 mg/dL (<100); Potassium 4.1 mmol/L (3.3-5.1); Sodium 136 mmol/L (135-145); Total Protein 7.8 g/dL (6.5-8.0); Triglycerides 102 mg/dL (<150)
[2025-01-16 13:57] LABS: HIV AB/AG Nonreactive (Nonreactive); HIV Num 1 0.06 S/CO (0.00-0.99); ~HepC Num1 0.11 S/CO (0.00-0.79); ~Hepatitis C Antibody Nonreactive (Nonreactive)
[2025-01-16 14:00] LABS: TSH reflex Free T4 1.41 uIU/mL (0.32-4.0); Vitamin D 25-OH Total 25.6 ng/mL (>30)
[2025-01-16 14:03] LABS: Folate 8.4 ng/mL (> or = 4.0); Vitamin B12 221 pg/mL (200-900)
== END 2025-01-16 11:43 | disposition home or self-care (01) ==
LOC: HO.HHCL 11:42
PROVIDERS: Visit Provider Internal Medicine
DX: R20.0 Anesthesia of skin (principal); I25.119 Atherosclerotic heart disease of native coronary artery with unspecified angina pectoris
CPT/HCPCS: 36415; 80053; 80061; 82306; 82607; 82746; 83036; 84443; 85025; 86803; 87389